=== PATIENT | female | born 1965 | race Caucasian/White ===

== ENCOUNTER 2021-07-09 11:57 | Outpatient (REF) | payer BC, SELFPAY ==
[2021-07-09 13:23] LABS: MANUAL DIFF FLAG NO
[2021-07-09 13:49] LABS: Basophils Absolute Auto 0.1 X10*3/uL (0.0-0.2); Basophils Percent Auto 1.3 % (0-2); Eosinophils Absolute Auto 0.5 X10*3/uL (0.0-0.4); Eosinophils Percent Auto 6.8 % (0-4); Hematocrit 39.1 % (37-47); Imm Gran Abs Auto 0.02 X10*3/uL (0.00-0.03); Imm Gran Pct Auto 0.3 % (0.0-0.4); Lymphocytes Absolute Auto 1.9 X10*3/uL (1.2-4.9); Lymphocytes Percent Auto 25.3 % (20-40); Mean Corpuscular HGB Conc 33.2 g/dl (31.0-35.0); Mean Corpuscular Hemoglobin 29.5 pg (27.0-33.0); Mean Corpuscular Volume 88.7 fL (80-98); Mean Platelet Volume 10.5 fL (9.4-12.3); Monocytes Absolute Auto 0.5 X10*3/uL (0.1-1.2); Monocytes Percent Auto 6.4 % (2-11); Neutrophils Absolute Auto 4.5 X10*3/uL (2.0-8.3); Neutrophils Percent Auto 59.9 % (45-73); Platelet Count 266 X10*3/uL (160-400); Red Blood Count 4.41 X10*6/uL (4.20-5.50); Red Cell Distribution Width 14.4 % (11.0-16.0); White Blood Count 7.5 X10*3/uL (4.8-10.8)
[2021-07-09 14:02] LABS: Anion Gap 12 (12-20); Blood Urea Nitrogen 9 mg/dL (9-16); Calcium 9.2 mg/dL (8.4-10.2); Carbon Dioxide 29 mmol/L (22-29); Chloride 105 mmol/L (96-108); Cholesterol 251 mg/dL; Estimated Glomerular Filt Rate > 60; Glucose Random 109 mg/dL (60-115); HDL Cholesterol 52 mg/dL; LDL Cholesterol Calculated 163 mg/dl; Potassium 3.9 mmol/L (3.3-5.1); Sodium 142 mmol/L (135-145); Triglycerides 182 mg/dL
[2021-07-09 14:14] LABS: TSH reflex Free T4 0.81 uIU/mL (0.32-4.0)
== END 2021-07-09 11:58 | disposition home or self-care (01) ==
LOC: HO.LAB 11:57
PROVIDERS: PCP Internal Medicine; Visit Provider Internal Medicine
DX: E66.09 Other obesity due to excess calories (principal); E78.9 Disorder of lipoprotein metabolism, unspecified; F33.9 Major depressive disorder, recurrent, unspecified; R06.02 Shortness of breath; R07.89 Other chest pain; R16.0 Hepatomegaly, not elsewhere classified
CPT/HCPCS: 36415; 80048; 80061; 84443; 85025

== ENCOUNTER 2021-07-11 09:06 | Outpatient (REF) | payer BC, SELFPAY ==
--- NOTE | ~2021-07-11 | CT_ITS ---
EXAMINATION: CT LIVER 3 PHASE CLINICAL INFORMATION: Hepatomegaly. COMPARISON: None. TECHNIQUE: Axial images through the abdomen with and without contrast. Arterial and portal-phase imaging through the liver following contrast. Patient received 85 mL Omnipaque 350 intravenous contrast. Total dose 887 mGy-cm. This CT examination was performed using dose optimization techniques as appropriate, variously including the following: *Automated exposure control *Adjustment of mA and/or kV according to patient size (this includes techniques or standardized protocols for targeted exams where dose is matched to indication/reason for exam; i.e. extremities or head) *Use of iterative reconstruction technique FINDINGS: There are small bilateral lower lobe pulmonary nodules. The largest pulmonary nodule measures 4 mm in the left lower lobe, axial image 6 series 7. The liver is slightly enlarged, right lobe measuring 18 cm in length. The liver is normal in contour. The liver is normal in attenuation. No focal liver lesion is seen. The gallbladder is normal. There is no intrahepatic or extrahepatic biliary duct dilatation. The spleen is normal. The pancreas is normal. The adrenal glands and kidneys are normal. Visualized bowel is unremarkable. No ascites or adenopathy is seen. Vascular structures are normal. There is a small umbilical hernia containing fat. There is mild degenerative disc disease at L4-L5. CT/CT liver 3 phase IMPRESSION: Slightly enlarged liver. The liver is normal in attenuation and contour. No focal liver lesion is seen. Multiple small bilateral pulmonary nodules, largest measuring 4 mm in the left lower lobe. Dedicated chest CT should be considered.
[2021-07-11] MEDS: iohexoL 350 MG/ML 100 ML INFUS..BTL IV (09:58)
== END 2021-07-11 09:07 | disposition home or self-care (01) ==
LOC: HO.CT 09:06
PROVIDERS: PCP Internal Medicine; Visit Provider Internal Medicine
DX: R16.0 Hepatomegaly, not elsewhere classified (principal)
CPT/HCPCS: 74170; Q9967

== ENCOUNTER 2021-07-25 14:50 | Outpatient (REF) | payer BC, SELFPAY ==
--- NOTE | ~2021-07-25 | CT_ITS ---
EXAMINATION: CT CHEST WITH CONTRAST CLINICAL INFORMATION: Follow-up pulmonary nodules COMPARISON: Lung windows from previous CT of the liver 07/11/2021 TECHNIQUE: Multidetector volumetric CT imaging of the chest was obtained after the administration of 50 mL of Omnipaque 350 intravenous contrast without immediate adverse reactions. Axial MIP volume rendering provided. Sagittal and coronal reformatted images were obtained. This CT examination was performed using dose optimization techniques as appropriate, variously including the following: *Automated exposure control *Adjustment of mA and/or kV according to patient size (this includes techniques or standardized protocols for targeted exams where dose is matched to indication/reason for exam; i.e. extremities or head) *Use of iterative reconstruction technique DLP: 171 mGy-cm FINDINGS: LUNGS: There is a 3 mm peripheral calcified left lower lobe nodule axial image 148 series 10 that is stable. The multiple small noncalcified pulmonary nodules seen at the lung bases on 07/11/2021 exam appear decreased in size or are no longer seen. There is a 2 mm peripheral or subpleural left upper lobe nodule adjacent to the fissure axial image 49 series 2 There is a 2 mm peripheral or subpleural right upper lobe nodule adjacent to the minor fissure axial image 80 series 10. There is a 2 mm peripheral or subpleural right lower lobe nodule adjacent to the major fissure axial image 90. These probably represent subpleural lymph nodes. The lungs are otherwise clear. MEDIASTINUM: The mediastinum is normal. PLEURA: There is no pleural effusion. No pleural mass or thickening. AXILLA: There are bilateral breast implants. There are no enlarged axillary lymph nodes. There is no chest wall mass. UPPER ABDOMEN: Unremarkable OSSEOUS STRUCTURES: There are mild degenerative changes of the spine. CT/CT chest w con IMPRESSION: Stable 3 mm calcified left lower lobe nodule probably representing a calcified granuloma. The other previously identified noncalcified lower lobe nodules on 07/11/2021 are no longer seen. There are several small 2 to 3 mm peripheral or subpleural pulmonary nodules probably representing subpleural lymph nodes.
[2021-07-25] MEDS: iohexoL 350 MG/ML 100 ML INFUS..BTL 65 ML IV (16:09)
== END 2021-07-25 14:51 | disposition home or self-care (01) ==
LOC: HO.CT 14:50
PROVIDERS: Visit Provider Internal Medicine
DX: R91.8 Other nonspecific abnormal finding of lung field (principal)
CPT/HCPCS: 71260; Q9967

== ENCOUNTER 2021-08-02 15:04 | Outpatient (REF) | payer BC, SELFPAY ==
--- NOTE | ~2021-08-02 | XR_ITS ---
EXAMINATION: XR FOOT, BILATERAL CLINICAL INFORMATION: Pain. COMPARISON: None TECHNIQUE: 3 views each foot. FINDINGS: LEFT FOOT: There is no visible fracture, dislocation or subluxation. There is a small calcaneal heel and retrocalcaneal enthesophytes. There is dorsal intertarsal spurring as well. No visible acute fracture, dislocation or lytic process seen. RIGHT FOOT: There is no visible acute fracture, dislocation or subluxation seen. The ankle mortise and the subtalar joints are normal. Small calcaneal and retrocalcaneal enthesophytes. There is mild dorsal 1st MTP joint periarticular spurring with loss of joint space. XR/XR foot RT min 3V IMPRESSION: Bilateral calcaneal heel and retrocalcaneal enthesophytes. Dorsal intertarsal spurring left foot and 1st MTP joint narrowing with spurring right foot. No visible acute fracture or dislocation.
--- NOTE | ~2021-08-02 | XR_ITS ---
EXAMINATION: XR FOOT, BILATERAL CLINICAL INFORMATION: Pain. COMPARISON: None TECHNIQUE: 3 views each foot. FINDINGS: LEFT FOOT: There is no visible fracture, dislocation or subluxation. There is a small calcaneal heel and retrocalcaneal enthesophytes. There is dorsal intertarsal spurring as well. No visible acute fracture, dislocation or lytic process seen. RIGHT FOOT: There is no visible acute fracture, dislocation or subluxation seen. The ankle mortise and the subtalar joints are normal. Small calcaneal and retrocalcaneal enthesophytes. There is mild dorsal 1st MTP joint periarticular spurring with loss of joint space. XR/XR foot LT min 3V IMPRESSION: Bilateral calcaneal heel and retrocalcaneal enthesophytes. Dorsal intertarsal spurring left foot and 1st MTP joint narrowing with spurring right foot. No visible acute fracture or dislocation.
== END 2021-08-02 15:05 | disposition home or self-care (01) ==
LOC: HO.HMGCX 15:04
PROVIDERS: PCP Internal Medicine; Visit Provider Internal Medicine
DX: M79.671 Pain in right foot (principal); M79.672 Pain in left foot
CPT/HCPCS: 73630

== ENCOUNTER → 2021-09-23 15:31 | Outpatient (BNVA) | payer BC, SELFPAY | PROVIDERS: PCP Internal Medicine; Visit Provider Internal Medicine Pulmonary Disease ==

== ENCOUNTER 2021-12-02 12:06 | Outpatient (REF) | payer OTHER, SELFPAY ==
--- NOTE | ~2021-12-02 | XR_ITS ---
EXAMINATION: XR ANKLE, RIGHT CLINICAL INFORMATION: Sprain COMPARISON: Right foot x-rays 08/12/2021 TECHNIQUE: AP, lateral, and mortise views of the right ankle. FINDINGS: Visualized portion of the distal tibia and fibula demonstrate no fracture. Ankle mortise is maintained aerated. Mild asymmetric soft tissue swelling overlying the lateral ankle. No gross ankle joint effusion. Small posterior and plantar calcaneal enthesophytes. XR/XR ankle RT min 3V IMPRESSION: Soft tissue swelling of the lateral ankle without fracture.
== END 2021-12-02 12:07 | disposition home or self-care (01) ==
LOC: HO.HMGCX 12:06
PROVIDERS: Visit Provider Internal Medicine
DX: S93.401A Sprain of unspecified ligament of right ankle, initial encounter (principal)
CPT/HCPCS: 73610

== ENCOUNTER 2022-07-03 15:13 | Outpatient (REF) | payer OTHER, SELFPAY | END 2022-07-03 15:14 | disposition home or self-care (01) | LOC: HO.LAB 15:13 | DX: R30.0 Dysuria (principal) | CPT/HCPCS: 87086; 87088; 87186 ==

== ENCOUNTER 2025-04-24 11:02 | Outpatient (REF) | payer OTHER, SELFPAY ==
[2025-04-24 11:32] LABS: MANUAL DIFF FLAG NO
[2025-04-24 11:40] LABS: Basophils Absolute Auto 0.1 X10*3/uL (0.0-0.2); Basophils Percent Auto 1.3 % (0-2); Eosinophils Absolute Auto 0.3 X10*3/uL (0.0-0.4); Eosinophils Percent Auto 5.1 % (0-4); Hematocrit 40.8 % (37.0-47.0); Hemoglobin 13.3 g/dl (12.0-16.0); Imm Gran Abs Auto 0.04 X10*3/uL (0.00-0.03); Imm Gran Pct Auto 0.7 % (0.0-0.4); Lymphocytes Percent Auto 33.3 % (20-40); Mean Corpuscular HGB Conc 32.6 g/dl (31.0-35.0); Mean Corpuscular Hemoglobin 29.2 pg (27.0-33.0); Mean Corpuscular Volume 89.7 fL (80.0-98.0); Mean Platelet Volume 9.9 fL (9.4-12.3); Monocytes Absolute Auto 0.4 X10*3/uL (0.1-1.2); Monocytes Percent Auto 5.9 % (2-11); Neutrophils Absolute Auto 3.3 x10*3/uL (2.0-8.3); Neutrophils Percent Auto 53.7 % (45-73); Platelet Count 198 X10*3/uL (160-400); Red Blood Count 4.55 X10*6/uL (4.20-5.50); Red Cell Distribution Width 13.2 % (11.0-16.0); White Blood Count 6.1 X10*3/uL (4.8-10.8)
--- OUTSIDE RECORDS SUMMARY | 2025-04-24 11:57 | XMS_ITS | Patient Health Record ---
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 Metabolic Panel ([id number] Reviewed date:09/16/2024 01:44:42 PM Interpretation: Performing Lab:[facility], [address] [place] [address], Phone - [phone], Director - Romario Notes/Report: Glucose 104 70-99 mg/dL BUN 14 6-24 mg/dL Creatinine 0.99 0.57-1.00 mg/dL eGFR 67 >59 mL/min/1.73 BUN/Creatinine Ratio 14 9-23 Sodium 142 134-144 mmol/L Potassium 4.6 3.5-5.2 mmol/L Chloride 102 96-106 mmol/L Carbon Dioxide, Total 26 20-29 mmol/L Calcium 9.3 8.7-10.2 mg/dL Protein, Total 6.7 6.0-8.5 g/dL Albumin 4.4 3.8-4.9 g/dL Globulin, Total 2.3 1.5-4.5 g/dL Bilirubin, Total 0.6 0.0-1.2 mg/dL Alkaline Phosphatase 98 44-121 IU/L AST (SGOT) 16 0-40 IU/L ALT (SGPT) 22 0-32 IU/L Lipid Panel-[id number] Reviewed date:09/16/2024 01:45:16 PM Interpretation: Performing Lab:[facility], [address], [place], Phone - [phone], Director - Romario Notes/Report: Cholesterol, Total 297 100-199 mg/dL Triglycerides 105 0-149 mg/dL HDL Cholesterol 74 >39 mg/dL VLDL Cholesterol Waylon 18 5-40 mg/dL LDL Chol Calc ([facility]) 205 0-99 mg/dL LDL Calc Comment: Consider evaluating for Familial Hypercholesterolemia(FH), if clinically indicated. Reason For Referral Reason Evaluation and manag ement Diagnosis 1 Other visual disturb ances (H53.8) Referral Organization [facility] Referring Provider First Name CHARANJIT Referring Provider Last Name CLAUDIA Referring Provider Speciality Internal edicine Referred Provider Specialty Ophthalmolog y General Notes Referral sent to [facility] - Dept will call patient for scheduling., Laura Cisneros 06/01/2024 08:11:49 AM > Referral Priority Routine Reason Please evaluate and treat; +Cologuard Diagnosis 1 Encounter for screen ing for malignant neoplasm of colon (Z12.11) Referral Organization [facility] Referring Provider First Name CHARANJIT Referring Provider Last Name CLAUDIA Referring Provider Speciality Internal edicine Referred Provider Specialty Gastroentero logy General Notes Referral (paper) fax ed to [facility]. Please call patient to schedule.Fritz Kayla 06/28/2024 02:48:43 PM > Referral Priority Routine Reason Full skin evaluation -Demos Diagnosis 1 Encounter for screen ing for malignant neoplasm of skin (Z12.83) Referral Organization [facility] Referring Provider First Name Yecenia Referring Provider Last Name Luma Referred Provider Specialty Dermatology General Notes Referral sent to [facility] os Dermatology. 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 Referral Priority Routine Reason Evaluation and manag ement Diagnosis 1 Generalized anxiety disorder (F41.1) Referral Organization [facility] Referring Provider First Name Yecenia Referring Provider Last Name Luma Referred Provider Specialty Psychiatry General Notes Referral sent to Dr. Da Silva - Office will call patient for scheduling.Blayne Latraya 08/23/2024 04:05:07 PM > Referral Priority Routine Reason Evaluation and manag ement Diagnosis 1 Fatigue, unspecified type (R53.83) Referral Organization [facility] Referring Provider First Name Yecenia Referring Provider Last Name Luma Referred Provider Specialty Sleep Medici ne General Notes Ref[facility] sent to [facility] ([address] [place] [address] ) - Office will call patient for scheduling., Laura Cisneros 08/23/2024 04:20:11 PM > Referral Priority Routine Reason Evaluation and manag ement - EMG Diagnosis 1 Bilateral carpal victor manuel jennifer syndrome (G56.03) Referral Organization [facility] Referring Provider First Name Yecenia Referring Provider Last Name Luma Referred Provider Specialty Neurology General Notes Referral sent to [facility] ([address] [address] [phone]) - Office will call patient for scheduling., Laura Cisneros 08/23/2024 04:23:13 PM > Referral Priority Routine Medications Medication SIG (Take, Route, Frequency, Duration) Notes Start Date End Date Status Claritin 10 MG 1 tablet Orally twic e a day; Duration: 7 days 10/12/2023 Not-Taking Flonase Allergy Relief 50 MCG/ACT 1 spray in each nostril Nasally Once a day; Duration: 30 days 10/12/2023 Not-Maribel g Buprenorphine HCl-Naloxone HCl 4-1 MG DISSOLVE 1 FILM UNDER THE TONGUE AND ALLOW TO DISSOLVE RF WHEN DUE SUBLINGUAL ONCE A DAY 28 DAYS RADHA [id number] Sublingual Once a day; Duration: 28 days 04/19/2025 Active Benzonatate 100 MG 1 capsule as needed Orally Three times a day; Duration: 7 days 10/12/2023 Not-Taking Gabapentin 300 MG TAKE 2 CAPSULES BY MOUTH EVERY DAY AT BEDTIME; Duration: 30 Active Sertraline HCl 100 MG TAKE 2 TABLETS BY MOUTH DAILY; Duration: 90 days Active buPROPion HCl ER (XL) 150 MG TAKE 1 TABLET BY MOUTH EVERY DAY IN THE MORNING FOR 30 DAYS; Duration: 90 Not-Taking traZODone HCl 50 MG 1 tablet at bedtime Orally; Duration: 30 days Active Hydrocortisone 0.5 % 1 application Externally Twice a day; Duration: 14 days 09/30/2024 Active amLODIPine Besylate 2.5 MG TAKE 1 TABLET BY MOUTH EVERY DAY FOR 30 DAYS; Duration: 90 Active Atorvastatin Calcium 20 MG TAKE 1 TABLET BY MOUTH EVERY DAY FOR 30 DAYS; Duration: 90 Active Immunizations Vaccine Route Administration Date Status Comme nts COVID Moderna Unknown 03/18/2021 Administered COVID Moderna Unknown 04/17/2021 Administered Influenza (split), seasonal, intradermal, preservative free Unknown 09/30/2017 Administered Tdap Unknown 09/30/2017 Administered Social History Tobacco Use: Social History Observation Description Date Details (start date - stop date) Never Smoker NA - NA Tobacco Use/Smoking Question Answer Notes Are you a nonsmoker Alcohol Screen (Audit-C) Question Answer Notes Did you have a drink containing alcohol in the p ast year? No Points 0 Interpretation Negative Problems Problem Type SNOMED Code ICD Code Onset Dates Problem Status W/U Status Risk Notes Problem Obesity due to excess calories (249477646) Other obesity due to excess calories (E66.09) Active confirmed Problem Mixed hyperlipidemia (470072921) Mixed hyperlipidemia (E78.2) Active confirmed Problem Opioid dependence (84011109) Opioid dependence, uncomplicated (F11.20) Active confirmed Problem Nondependent cannabis abuse (303479076) Cannabis use, unspecified, uncomplicated (F12.90) Active confirmed Problem Generalized anxiety disorder (65966182) Generalized anxiety disorder (F41.1) Active confirmed Problem Restless legs syndrome (00402595) Restless legs syndrome (G25.81) Active confirmed Problem Insomnia (946943047) Insomnia, unspecified (G47.00) Active confirmed Problem Chronic kidney disease stage 2 (606450702) Chronic kidney disease, stage 2 (mild) (N18.2) Active confirmed Problem Drug addiction counseling (98492710) Drug abuse counseling and surveillance of drug abuser (Z71.51) Active confirmed Problem Essential hypertension (95157227) Essential (primary) hypertension (I10) Active confirmed Problem Bilateral carpal tunnel syndrome (1907549648411704 1) Bilateral carpal tunnel syndrome (G56.03) Active confirmed Vital Signs Heart Rate 81 /min 04/19/2025 Temperature 97.0 degrees Fahrenheit 04/19/2025 Blood pressure diastolic 72 mm Hg 04/19/2025 Oximetry 97 % 04/19/2025 Height 67 in 04/19/2025 Blood pressure systolic 120 mm Hg 04/19/2025 Weight 212.0 lbs 04/19/2025 BMI 33.2 kg/m2 04/19/2025 Encounters Encounter Location Date Provider Diagnosis [facility] [address] [place] [address] 05/23/2024 [facility] [address] [place] [address] 05/27/2024 [facility] Encounter for screen ing for malignant neoplasm of colon Z12.11 [facility] [address] [place] [address] 06/20/2024 [facility] [address] [place] [address] 06/28/2024 [facility] [address] [place] [address] 07/18/2024 [facility] [address] [place] [address] 08/05/2024 [facility] [address] [place] [address] 08/23/2024 [facility] [address] [place] [address] 09/13/2024 [facility] [address] [place] [address] 09/16/[address] [place] [address] 09/16/2024 Ghadeer Mazloum Hyperlipidemia, mixe d E78.2 and Impaired fasting blood sugar R73.[address] [place] [address] 09/21/[address] [place] [address] 09/21/[address] [place] [address] 12/21/2024 [facility] Insomnia, unspecifie d G47.[address] [place] [address] 03/23/2025 Ghadeer Mazloum Opioid dependence, uncomplicated F11.[address] [place] [address] 04/11/2025 Ghadeer Mazloum [address] [place] [address] 08/15/2024 Ghadeer Mazloum Essential (primary) hypertension I10 ; Annual physical exam Z00.00 ; Generalized anxiety disorder F41.1 ; Insomnia, unspecified G47.00 ; Other obesity due to excess calories E66.09 ; Dietary counseling and surveillance Z71.3 ; Opioid dependence, uncomplicated F11.20 ; Drug abuse counseling and surveillance of drug abuser Z71.51 ; Cannabis use, unspecified, uncomplicated F12.90 ; Restless legs syndrome G25.81 ; Fatigue, unspecified type R53.83 ; Bilateral carpal tunnel syndrome G56.03 and Encounter for screening mammogram for malignant neoplasm of breast Z12.[address] [place] [address] 02/15/2025 Ghadeer Mazloum Mixed hyperlipidemia E78.2 ; Opioid dependence, uncomplicated F11.20 ; Generalized anxiety disorder F41.1 and Cannabis use, unspecified, uncomplicated F12.[address] [place] [address] 08/12/2024 DONOHUE GUL Essential (primary) hypertension I10 ; Other obesity due to excess calories E66.09 ; Dietary counseling and surveillance Z71.3 ; Other chest pain R07.89 ; Opioid dependence, uncomplicated F11.20 and Drug abuse counseling and surveillance of drug abuser Z71.[address] [place] [address] 05/10/[address] [place] [address] 05/27/2024 DONOHUE GLENYS Opioid dependence, uncomplicated F11.20 ; Drug abuse counseling and surveillance of drug abuser Z71.51 and Generalized anxiety disorder F41.[address] [place] [address] 07/08/2024 Ghadeer Mazloum Opioid dependence, uncomplicated F11.20 ; Cardiac arrhythmia, unspecified I49.9 ; Drug abuse counseling and surveillance of drug abuser Z71.51 and Generalized anxiety disorder F41.[address] [place] [address] 03/17/2025 Ghadeer Mazloum Mixed hyperlipidemia E78.2 ; Opioid dependence, uncomplicated F11.20 ; Generalized anxiety disorder F41.1 and Cannabis use, unspecified, uncomplicated F12.[address] [place] [address] 04/19/2025 Ghadeer Mazloum Mixed hyperlipidemia E78.2 ; Opioid dependence, uncomplicated F11.20 ; Generalized anxiety disorder F41.1 ; Essential (primary) hypertension I10 ; Cannabis use, unspecified, uncomplicated F12.90 and Atypical chest pain R07.[address] [place] [address] 09/15/[address] [place] [address] 09/30/2024 DONOHUE GUL Generalized anxiety disorder F41.1 ; Mixed hyperlipidemia E78.2 ; Other obesity due to excess calories E66.09 ; Opioid dependence, uncomplicated F11.20 ; Cannabis use, unspecified, uncomplicated F12.90 ; Impaired fasting blood sugar R73.01 ; Dietary counseling and surveillance Z71.3 ; Dermatitis, unspecified L30.9 and Chronic kidney disease, stage 2 (mild) N18.[address] [address] 10/28/2024 Ghadeer Mazloum Mixed hyperlipidemia E78.2 ; Opioid dependence, uncomplicated F11.20 ; Generalized anxiety disorder F41.1 ; Other obesity due to excess calories E66.09 ; Cannabis use, unspecified, uncomplicated F12.90 ; Dietary counseling and surveillance Z71.3 and Impaired fasting blood sugar R73.[address] [address] 11/25/2024 Ghadeer Mazloum Mixed hyperlipidemia E78.2 ; Opioid dependence, uncomplicated F11.20 ; Generalized anxiety disorder F41.1 ; Cannabis use, unspecified, uncomplicated F12.90 ; Other obesity due to excess calories E66.09 and Dietary counseling and surveillance Z71.[address] [address] 12/23/2024 Ghadeer Mazloum Mixed hyperlipidemia E78.2 ; Opioid dependence, uncomplicated F11.20 ; Generalized anxiety disorder F41.1 ; Cannabis use, unspecified, uncomplicated F12.90 and Fatigue, unspecified type R53.[address] [address] 01/20/2025 Aroosa Alam Mixed hyperlipidemia E78.2 ; Opioid dependence, uncomplicated F11.20 ; Generalized anxiety disorder F41.1 ; Cannabis use, unspecified, uncomplicated F12.90 and Fatigue, unspecified type R53.83 Assessments Encounter Date Diagnosis (ICD Code) Assessment Notes Treatment Notes Treatment Clinical Notes Section Notes 05/27/2024 Drug abuse counseling and surveillance of drug abuser (ICD-10 - Z71.51) Patient is here today called today for follow-up on opioid use disorder. Plan is as follows Patient requests for ongoing treatment with Suboxone for opioid dependence and med compliance requirement today satisfying the federation of state Board recommendation and guidelines for judicious, supervised Suboxone dispensing. Patient agrees to a personal interview for renewal or further treatment As planned at next scheduled visit or sooner if conditions change. Medication contract agreement and compliance reinforced. All risks and benefits associated with Suboxone utilization, safe use and storage was discussed in detail and patient voluntarily accepts all obligations. Toxicology and prescription monitoring program is followed. As such controlled substance use required judicious monitoring to excess patient's compliance with the mutually agreed upon controlled substance use agreement which has been signed by the patient at the initiation of the controlled substance prescribing. Therefore following state, Federal, [facility] guidelines for controlled substance testing policies. Patient has been assessed based on psychometric risks to, prescription monitoring program, toxicology tests results monitoring and compliance and this patient therefore will be tested on site guidelines. Urine toxicology reviewed and is positive for buprenorphine and marijuana. Liver function tests were reviewed and were within normal limits ORT for narcotic abuse done and he is moderate risk Wrappers will be counted on physical visit Prescription monitoring program reviewed Controlled substance contract signed No signs of diversion or aberrant behavior Continue current regimen Counseling. Patient goes for counseling Generalized anxiety disorder. Mood is stable on Sertraline. Blurred vision. Referred to ophthalmology for eye screening Scribe services used to formulate this note under HIPAA compliance and under [place] law mandated for scribe services. Patient aware of service. Verbal consent and written consent taken from the patient. Patient understands and verbalizes understanding of the scribes services and all questions answered regarding scribes services. Patient agrees to use of scribes services. 05/27/2024 Encounter for screening for malignant neoplasm of colon (ICD-10 - Z12.11) 07/08/2024 Opioid dependence, uncomplicated (ICD-10 - F11.20) Patient is here today called today for follow-up on opioid use disorder. Plan is as follows Patient requests for ongoing treatment with Suboxone for opioid dependence and med compliance requirement today satisfying the federation of state Board recommendation and guidelines for judicious, supervised Suboxone dispensing. Patient agrees to a personal interview for renewal or further treatment As planned at next scheduled visit or sooner if conditions change. Medication contract agreement and compliance reinforced. All risks and benefits associated with Suboxone utilization, safe use and storage was discussed in detail and patient voluntarily accepts all obligations. Toxicology and prescription monitoring program is followed. As such controlled substance use required judicious monitoring to excess patient's compliance with the mutually agreed upon controlled substance use agreement which has been signed by the patient at the initiation of the controlled substance prescribing. Therefore following state, Federal, CMS guidelines for controlled substance testing policies. Patient has been assessed based on psychometric risks to, prescription monitoring program, toxicology tests results monitoring and compliance and this patient therefore will be tested on site guidelines. Urine toxicology reviewed and is positive for buprenorphine and marijuana. Liver function tests were reviewed and were within normal limits ORT for narcotic abuse done and he is moderate risk Wrappers will be counted on physical visit Prescription monitoring program reviewed Controlled substance contract signed No signs of diversion or aberrant behavior Continue current regimen Counseling. Patient goes for counseling Generalized anxiety disorder. Mood is stable on Sertraline. Irregular rhythm: - EKG is done in the office today, HR of 57bpm, Sinus rhythm.PAC and PVC are noted. No ST elevation or depression is noted I have rendered the services for this patient under direct supervision of Dr. Taylor, who did not see the patient but was available upon request 05/27/2024 Opioid dependence, uncomplicated (ICD-10 - F11.20) Patient is here today called today for follow-up on opioid use disorder. Plan is as follows Patient requests for ongoing treatment with Suboxone for opioid dependence and med compliance requirement today satisfying the federation of state Board recommendation and guidelines for judicious, supervised Suboxone dispensing. Patient agrees to a personal interview for renewal or further treatment As planned at next scheduled visit or sooner if conditions change. Medication contract agreement and compliance reinforced. All risks and benefits associated with Suboxone utilization, safe use and storage was discussed in detail and patient voluntarily accepts all obligations. Toxicology and prescription monitoring program is followed. As such controlled substance use required judicious monitoring to excess patient's compliance with the mutually agreed upon controlled substance use agreement which has been signed by the patient at the initiation of the controlled substance prescribing. Therefore following state, Federal, CMS guidelines for controlled substance testing policies. Patient has been assessed based on psychometric risks to, prescription monitoring program, toxicology tests results monitoring and compliance and this patient therefore will be tested on site guidelines. Urine toxicology reviewed and is positive for buprenorphine and marijuana. Liver function tests were reviewed and were within normal limits ORT for narcotic abuse done and he is moderate risk Wrappers will be counted on physical visit Prescription monitoring program reviewed Controlled substance contract signed No signs of diversion or aberrant behavior Continue current regimen Counseling. Patient goes for counseling Generalized anxiety disorder. Mood is stable on Sertraline. Blurred vision. Referred to ophthalmology for eye screening Scribe services used to formulate this note under HIPAA compliance and under [place] law mandated for scribe services. Patient aware of service. Verbal consent and written consent taken from the patient. Patient understands and verbalizes understanding of the scribes services and all questions answered regarding scribes services. Patient agrees to use of scribes services. 07/08/2024 Cardiac arrhythmia, unspecified (ICD-10 - I49.9) Patient is here today called today for follow-up on opioid use disorder. Plan is as follows Patient requests for ongoing treatment with Suboxone for opioid dependence and med compliance requirement today satisfying the federation of state Board recommendation and guidelines for judicious, supervised Suboxone dispensing. Patient agrees to a personal interview for renewal or further treatment As planned at next scheduled visit or sooner if conditions change. Medication contract agreement and compliance reinforced. All risks and benefits associated with Suboxone utilization, safe use and storage was discussed in detail and patient voluntarily accepts all obligations. Toxicology and prescription monitoring program is followed. As such controlled substance use required judicious monitoring to excess patient's compliance with the mutually agreed upon controlled substance use agreement which has been signed by the patient at the initiation of the controlled substance prescribing. Therefore following state, Federal, CMS guidelines for controlled substance testing policies. Patient has been assessed based on psychometric risks to, prescription monitoring program, toxicology tests results monitoring and compliance and this patient therefore will be tested on site guidelines. Urine toxicology reviewed and is positive for buprenorphine and marijuana. Liver function tests were reviewed and were within normal limits ORT for narcotic abuse done and he is moderate risk Wrappers will be counted on physical visit Prescription monitoring program reviewed Controlled substance contract signed No signs of diversion or aberrant behavior Continue current regimen Counseling. Patient goes for counseling Generalized anxiety disorder. Mood is stable on Sertraline. Irregular rhythm: - EKG is done in the office today, HR of 57bpm, Sinus rhythm.PAC and PVC are noted. No ST elevation or depression is noted I have rendered the services for this patient under direct supervision of Dr. Taylor, who did not see the patient but was available upon request 08/12/2024 Other obesity due to excess calories (ICD-10 - E66.09) Mrs. Hinkle is 58 years old lady with a history of generalized anxiety disorder here for follow up s/p ER discharge. Plan is as follows: Hypertension. Her blood pressure is running high in the office today. Cut back on sodium intake. Advised appropriate hydration, cardio exercises and weight loss. Start amlodipine 2.5 MG once a day. Generalized anxiety disorder. Mood is stable on Sertraline once a day. Class 1 obesity. Advised dietary restrictions and regimental exercise. Goal is to lose 5-6 lbs a month. Screening blood work before next appointment. General health concerns discussed with patient. Scribe services used to formulate this note under HIPAA compliance and under [place] law mandated for scribe services. Patient aware of service. Verbal consent and written consent taken from the patient. Patient understands and verbalizes understanding of the scribes services and all questions answered regarding scribes services. Patient agrees to use of scribes services. 08/12/2024 Essential (primary) hypertension (ICD-10 - I10) Mrs. Hinkle is 58 years old lady with a history of generalized anxiety disorder here for follow up s/p ER discharge. Plan is as follows: Hypertension. Her blood pressure is running high in the office today. Cut back on sodium intake. Advised appropriate hydration, cardio exercises and weight loss. Start amlodipine 2.5 MG once a day. Generalized anxiety disorder. Mood is stable on Sertraline once a day. Class 1 obesity. Advised dietary restrictions and regimental exercise. Goal is to lose 5-6 lbs a month. Screening blood work before next appointment. General health concerns discussed with patient. Scribe services used to formulate this note under HIPAA compliance and under [place] law mandated for scribe services. Patient aware of service. Verbal consent and written consent taken from the patient. Patient understands and verbalizes understanding of the scribes services and all questions answered regarding scribes services. Patient agrees to use of scribes services. 08/15/2024 Essential (primary) hypertension (ICD-10 - I10) Mrs. Hinkle is 58 years old lady with a history of generalized anxiety disorder here for follow up s/p ER discharge. Plan is as follows: Hypertension. - Her blood pressure is well controlled. Continue on the same regimen. Cut back on sodium intake. Advised appropriate hydration, cardio exercises and weight loss. - EKG was done 2 weeks ago. She has echo appointment coming up in October. Generalized anxiety disorder. Insomnia: - PHQ 9 of 14. She is on sertraline 100 mg twice a day. She had side effects from adjunct medications. Given that she has insomnia and depression, I started patient on low dose trazodone. She is also going to be on gabapentin for restless leg syndrome which will also help with sleep and depression. She has an established therapy. Referred patient to psychiatry. Will follow in 4 weeks Class 1 obesity. -Advised dietary restrictions and regimental exercise. Goal is to lose 5-6 lbs a month. Opioid dependence: - Stable on Suboxone. Utox is done in the office and it is positive for Suboxone. Continue on the same regimen. - Positive for fentanyl we will send it for confirmation. Cannabis use - Advised on smoking cessation given its side effects. Patient states that she is working on cutting down on smoking marijuana. Restless leg syndrome: - Started patient on gabapentin. Side effects have been discussed. Patient agrees. Fatigue Snoring - I will rule out underlying causes including thyroid, vitamin D, CBC, folate and B12. I also referred patient to sleep medicine. Carpal tunnel syndrome bilateral - Advised on use of splint, NSAIDs. Referred patient to nerve conduction study for further management. Screening for breast cancer - Ordered mammogram Screening for colon cancer - She has a colonoscopy coming up. Referred patient to [facility]ENCE [facility] for Pap smear, pelvic examination, breast exam. Otherwise, she is up-to-date on vaccinations. Screening blood work before next appointment. General health concerns discussed with patient. I have rendered the services for this patient under direct supervision of Dr. Taylor, who did not see the patient but was available upon request I was present and available in the office during the visit 08/15/2024 Annual physical exam (ICD-10 - Z00.00) Mrs. Hinkle is 58 years old lady with a history of generalized anxiety disorder here for follow up s/p ER discharge. Plan is as follows: Hypertension. - Her blood pressure is well controlled. Continue on the same regimen. Cut back on sodium intake. Advised appropriate hydration, cardio exercises and weight loss. - EKG was done 2 weeks ago. She has echo appointment coming up in October. Generalized anxiety disorder. Insomnia: - PHQ 9 of 14. She is on sertraline 100 mg twice a day. She had side effects from adjunct medications. Given that she has insomnia and depression, I started patient on low dose trazodone. She is also going to be on gabapentin for restless leg syndrome which will also help with sleep and depression. She has an established therapy. Referred patient to psychiatry. Will follow in 4 weeks Class 1 obesity. -Advised dietary restrictions and regimental exercise. Goal is to lose 5-6 lbs a month. Opioid dependence: - Stable on Suboxone. Utox is done in the office and it is positive for Suboxone. Continue on the same regimen. - Positive for fentanyl we will send it for confirmation. Cannabis use - Advised on smoking cessation given its side effects. Patient states that she is working on cutting down on smoking marijuana. Restless leg syndrome: - Started patient on gabapentin. Side effects have been discussed. Patient agrees. Fatigue Snoring - I will rule out underlying causes including thyroid, vitamin D, CBC, folate and B12. I also referred patient to sleep medicine. Carpal tunnel syndrome bilateral - Advised on use of splint, NSAIDs. Referred patient to nerve conduction study for further management. Screening for breast cancer - Ordered mammogram Screening for colon cancer - She has a colonoscopy coming up. Referred patient to [facility]ON[facility] SCIENCE PROF[facility] for Pap smear, pelvic examination, breast exam. Otherwise, she is up-to-date on vaccinations. Screening blood work before next appointment. General health concerns discussed with patient. I have rendered the services for this patient under direct supervision of Dr. Taylor, who did not see the patient but was available upon request I was present and available in the office during the visit 09/16/2024 Impaired fasting blood sugar (ICD-10 - R73.01) 09/16/2024 Hyperlipidemia, mixed (ICD-10 - E78.2) 09/30/2024 Mixed hyperlipidemia (ICD-10 - E78.2) Krysta is 58 years old pleasant lady with generalized anxiety disorder, mixed hyperlipidemia, carpal tunnel syndrome, hypertension, cannabis use and history of opioid use in the past currently on Suboxone is here for follow-up. Plan is as follows Mixed hyperlipidemia. Started on atorvastatin 20 mg and repeat lipid panel in 4-6 weeks. Advised to take the medication in the evening. CKD stage II. Discussed with the patient to stay appropriately hydrated and take Tylenol for pain. This can be multifactorial but no intervention needed. Generalized anxiety disorder. She is stable and she follows up with Miss Parham for counseling. Impaired fasting glucose. Dietary restrictions and check A1c in future. Obesity. Encouraged to lose weight. Dietary modifications and lifestyle changes encouraged. Average weight loss should be 6 pounds a month. Opioid dependence. -Urine toxicology reviewed with appropriately positive and negative. -Liver function tests within normal limits -Wrappers counted, four Suboxone films left -No signs of divergent or apparent behavior -Prescription monitoring program reviewed -He has controlled substance contract -Continue current regimen -Counseling done 09/30/2024 Generalized anxiety disorder (ICD-10 - F41.1) Krysta is 58 years old pleasant lady with generalized anxiety disorder, mixed hyperlipidemia, carpal tunnel syndrome, hypertension, cannabis use and history of opioid use in the past currently on Suboxone is here for follow-up. Plan is as follows Mixed hyperlipidemia. Started on atorvastatin 20 mg and repeat lipid panel in 4-6 weeks. Advised to take the medication in the evening. CKD stage II. Discussed with the patient to stay appropriately hydrated and take Tylenol for pain. This can be multifactorial but no intervention needed. Generalized anxiety disorder. She is stable and she follows up with Miss Parham for counseling. Impaired fasting glucose. Dietary restrictions and check A1c in future. Obesity. Encouraged to lose weight. Dietary modifications and lifestyle changes encouraged. Average weight loss should be 6 pounds a month. Opioid dependence. -Urine toxicology reviewed with appropriately positive and negative. -Liver function tests within normal limits -Wrappers counted, four Suboxone films left -No signs of divergent or apparent behavior -Prescription monitoring program reviewed -He has controlled substance contract -Continue current regimen -Counseling done 11/25/2024 Mixed hyperlipidemia (ICD-10 - E78.2) Krysta is 59 years old pleasant lady with generalized anxiety disorder, mixed hyperlipidemia, carpal tunnel syndrome, hypertension, cannabis use and history of opioid use in the past currently on Suboxone is here for follow-up. Plan is as follows Opioid dependence. -Urine toxicology reviewed with appropriately positive for Buprenorphine. -Liver function tests within normal limits -Wrappers counted, four Suboxone films left -No signs of divergent or apparent behavior -Prescription monitoring program reviewed -He has controlled substance contract -Continue current regimen -Counseling done Mixed hyperlipidemia. - Continue on atorvastatin 20 mg and repeat lipid panel in 4-6 weeks. Advised to take the medication in the evening. ARMIN: - Stable at this point. She recently lost her mother and best friend. She is currently in therapy. Obesity. - She is losing steady weight. She will scheduling an appt for weight consultation. Encouraged to lose weight. Dietary modifications and lifestyle changes encouraged. Average weight loss should be 4-6lbs monthly. 11/25/2024 Opioid dependence, uncomplicated (ICD-10 - F11.20) Krysta is 59 years old pleasant lady with generalized anxiety disorder, mixed hyperlipidemia, carpal tunnel syndrome, hypertension, cannabis use and history of opioid use in the past currently on Suboxone is here for follow-up. Plan is as follows Opioid dependence. -Urine toxicology reviewed with appropriately positive for Buprenorphine. -Liver function tests within normal limits -Wrappers counted, four Suboxone films left -No signs of divergent or apparent behavior -Prescription monitoring program reviewed -He has controlled substance contract -Continue current regimen -Counseling done Mixed hyperlipidemia. - Continue on atorvastatin 20 mg and repeat lipid panel in 4-6 weeks. Advised to take the medication in the evening. ARMIN: - Stable at this point. She recently lost her mother and best friend. She is currently in therapy. Obesity. - She is losing steady weight. She will scheduling an appt for weight consultation. Encouraged to lose weight. Dietary modifications and lifestyle changes encouraged. Average weight loss should be 4-6lbs monthly. 12/21/2024 Insomnia, unspecified (ICD-10 - G47.00) 12/23/2024 Mixed hyperlipidemia (ICD-10 - E78.2) Krysta is 59 years old pleasant lady with generalized anxiety disorder, mixed hyperlipidemia, carpal tunnel syndrome, hypertension, cannabis use and history of opioid use in the past currently on Suboxone is here for follow-up. Plan is as follows Opioid dependence. -Urine toxicology reviewed with appropriately positive for Buprenorphine. -Liver function tests within normal limits -Wrappers counted, four Suboxone films left -No signs of divergent or apparent behavior -Prescription monitoring program reviewed -He has controlled substance contract -Continue current regimen -Counseling done Mixed hyperlipidemia. - Continue on atorvastatin 20 mg and repeat lipid panel in 4-6 weeks. Advised to take the medication in the evening. ARMIN: - Stable at this point. She recently lost her mother and best friend. She is currently in therapy. I have discussed adding Seroquel to the regimen given ongoing depression, however she is hesitant and would like to do more research and will keep us updated. Cannabis use - Abstinence is recommended. Complications have been discussed. Fatigue - Likely secondary to depression and grieving. However I will still rule out secondary reversible causes I have rendered the services for this patient under direct supervision of Dr. Taylor, who did not see the patient but was available upon request 12/23/2024 Opioid dependence, uncomplicated (ICD-10 - F11.20) Krysta is 59 years old pleasant lady with generalized anxiety disorder, mixed hyperlipidemia, carpal tunnel syndrome, hypertension, cannabis use and history of opioid use in the past currently on Suboxone is here for follow-up. Plan is as follows Opioid dependence. -Urine toxicology reviewed with appropriately positive for Buprenorphine. -Liver function tests within normal limits -Wrappers counted, four Suboxone films left -No signs of divergent or apparent behavior -Prescription monitoring program reviewed -He has controlled substance contract -Continue current regimen -Counseling done Mixed hyperlipidemia. - Continue on atorvastatin 20 mg and repeat lipid panel in 4-6 weeks. Advised to take the medication in the evening. ARMIN: - Stable at this point. She recently lost her mother and best friend. She is currently in therapy. I have discussed adding Seroquel to the regimen given ongoing depression, however she is hesitant and would like to do more research and will keep us updated. Cannabis use - Abstinence is recommended. Complications have been discussed. Fatigue - Likely secondary to depression and grieving. However I will still rule out secondary reversible causes I have rendered the services for this patient under direct supervision of Dr. Taylor, who did not see the patient but was available upon request 01/20/2025 Mixed hyperlipidemia (ICD-10 - E78.2) Krysta is 59 years old pleasant lady with generalized anxiety disorder, mixed hyperlipidemia, carpal tunnel syndrome, hypertension, cannabis use and history of opioid use in the past currently on Suboxone is here for follow-up. Plan is as follows Opioid dependence. -Urine toxicology reviewed with appropriately positive for Buprenorphine. -Liver function tests within normal limits -Wrappers counted, four Suboxone films left -No signs of divergent or apparent behavior -Prescription monitoring program reviewed -She has controlled substance contract -Continue current regimen -Counseling done Mixed hyperlipidemia. - Continue on atorvastatin 20 mg and repeat lipid panel in 4-6 weeks lower extremity neuropathy,, chronic lower extremity pain she cannot sleep at home mostly restless leg, she is on gabapentin 200 mg patient reports she cannot sleep and has a lot of lower extremity pain she also went to a sack keeper who prescribed a brace but patient insurance would not cover for it. She is getting a new insurance in February and most likely it would be covered. For now we will increase gabapentin to 300 mg at night from 200 mg at night. ARMIN: - Stable at this point. Marijuana use Abstinence is recommended. Complications have been discussed. 01/20/2025 Opioid dependence, uncomplicated (ICD-10 - F11.20) Krysta is 59 years old pleasant lady with generalized anxiety disorder, mixed hyperlipidemia, carpal tunnel syndrome, hypertension, cannabis use and history of opioid use in the past currently on Suboxone is here for follow-up. Plan is as follows Opioid dependence. -Urine toxicology reviewed with appropriately positive for Buprenorphine. -Liver function tests within normal limits -Wrappers counted, four Suboxone films left -No signs of divergent or apparent behavior -Prescription monitoring program reviewed -She has controlled substance contract -Continue current regimen -Counseling done Mixed hyperlipidemia. - Continue on atorvastatin 20 mg and repeat lipid panel in 4-6 weeks lower extremity neuropathy,, chronic lower extremity pain she cannot sleep at home mostly restless leg, she is on gabapentin 200 mg patient reports she cannot sleep and has a lot of lower extremity pain she also went to a sack keeper who prescribed a brace but patient insurance would not cover for it. She is getting a new insurance in February and most likely it would be covered. For now we will increase gabapentin to 300 mg at night from 200 mg at night. ARMIN: - Stable at this point. Marijuana use Abstinence is recommended. Complications have been discussed. 02/15/2025 Mixed hyperlipidemia (ICD-10 - E78.2) Krysta is 59 years old pleasant lady with generalized anxiety disorder, mixed hyperlipidemia, carpal tunnel syndrome, hypertension, cannabis use and history of opioid use in the past currently on Suboxone is here for follow-up. Plan is as follows Opioid dependence. -Urine toxicology reviewed with appropriately positive for Buprenorphine. -Liver function tests within normal limits -Wrappers counted, four Suboxone films left -No signs of divergent or apparent behavior -Prescription monitoring program reviewed -She has controlled substance contract -Continue current regimen -Counseling done Mixed hyperlipidemia. - Continue on atorvastatin 20 mg and repeat lipid panel in 4-6 weeks lower extremity neuropathy,, chronic lower extremity pain she cannot sleep at home mostly restless leg, she is on gabapentin 200 mg patient reports she cannot sleep and has a lot of lower extremity pain she also went to a sack keeper who prescribed a brace but patient insurance would not cover for it. She is getting a new insurance in February and most likely it would be covered. For now we will increase gabapentin to 300 mg at night from 200 mg at night. ARMIN: - Stable at this point. She will schedule an appointment with her mental health therapist. Advised on lifestyle modification like exercising as it does help with depression/anxiet y Insomnia. She is currently on trazodone 50 mg advised on increasing to 2 tablets. She can also consider magnesium supplement as well Marijuana use Abstinence is recommended. Complications have been discussed. 02/15/2025 Opioid dependence, uncomplicated (ICD-10 - F11.20) Krysta is 59 years old pleasant lady with generalized anxiety disorder, mixed hyperlipidemia, carpal tunnel syndrome, hypertension, cannabis use and history of opioid use in the past currently on Suboxone is here for follow-up. Plan is as follows Opioid dependence. -Urine toxicology reviewed with appropriately positive for Buprenorphine. -Liver function tests within normal limits -Wrappers counted, four Suboxone films left -No signs of divergent or apparent behavior -Prescription monitoring program reviewed -She has controlled substance contract -Continue current regimen -Counseling done Mixed hyperlipidemia. - Continue on atorvastatin 20 mg and repeat lipid panel in 4-6 weeks lower extremity neuropathy,, chronic lower extremity pain she cannot sleep at home mostly restless leg, she is on gabapentin 200 mg patient reports she cannot sleep and has a lot of lower extremity pain she also went to a sack keeper who prescribed a brace but patient insurance would not cover for it. She is getting a new insurance in February and most likely it would be covered. For now we will increase gabapentin to 300 mg at night from 200 mg at night. ARMIN: - Stable at this point. She will schedule an appointment with her mental health therapist. Advised on lifestyle modification like exercising as it does help with depression/anxiet y Insomnia. She is currently on trazodone 50 mg advised on increasing to 2 tablets. She can also consider magnesium supplement as well Marijuana use Abstinence is recommended. Complications have been discussed. 03/17/2025 Mixed hyperlipidemia (ICD-10 - E78.2) Krysta is 59 years old pleasant lady with generalized anxiety disorder, mixed hyperlipidemia, carpal tunnel syndrome, hypertension, cannabis use and history of opioid use in the past currently on Suboxone is here for follow-up. Plan is as follows Opioid dependence. -Urine toxicology reviewed with appropriately positive for Buprenorphine. -Liver function tests within normal limits -Wrappers counted, four Suboxone films left -No signs of divergent or apparent behavior -Prescription monitoring program reviewed -She has controlled substance contract -Continue current regimen -Counseling done Mixed hyperlipidemia. - Continue on atorvastatin 20 mg and repeat lipid panel in 4-6 weeks lower extremity neuropathy,, chronic lower extremity pain she cannot sleep at home mostly restless leg, she is on gabapentin 200 mg patient reports she cannot sleep and has a lot of lower extremity pain she also went to a sack keeper who prescribed a brace but patient insurance would not cover for it. She is getting a new insurance in February and most likely it would be covered. For now we will increase gabapentin to 300 mg at night from 200 mg at night. ARMIN: - Stable at this point. She will schedule an appointment with her mental health therapist. Advised on lifestyle modification like exercising as it does help with depression/anxiet y Insomnia. Stable continue on trazodone.Add magnesium supplement Marijuana use Abstinence is recommended. Complications have been discussed. General concerns have been discussed I have rendered the services for this patient under direct supervision of Dr. Taylor, who did not see the patient but was available upon request 03/17/2025 Opioid dependence, uncomplicated (ICD-10 - F11.20) Krysta is 59 years old pleasant lady with generalized anxiety disorder, mixed hyperlipidemia, carpal tunnel syndrome, hypertension, cannabis use and history of opioid use in the past currently on Suboxone is here for follow-up. Plan is as follows Opioid dependence. -Urine toxicology reviewed with appropriately positive for Buprenorphine. -Liver function tests within normal limits -Wrappers counted, four Suboxone films left -No signs of divergent or apparent behavior -Prescription monitoring program reviewed -She has controlled substance contract -Continue current regimen -Counseling done Mixed hyperlipidemia. - Continue on atorvastatin 20 mg and repeat lipid panel in 4-6 weeks lower extremity neuropathy,, chronic lower extremity pain she cannot sleep at home mostly restless leg, she is on gabapentin 200 mg patient reports she cannot sleep and has a lot of lower extremity pain she also went to a sack keeper who prescribed a brace but patient insurance would not cover for it. She is getting a new insurance in February and most likely it would be covered. For now we will increase gabapentin to 300 mg at night from 200 mg at night. ARMIN: - Stable at this point. She will schedule an appointment with her mental health therapist. Advised on lifestyle modification like exercising as it does help with depression/anxiet y Insomnia. Stable continue on trazodone.Add magnesium supplement Marijuana use Abstinence is recommended. Complications have been discussed. General concerns have been discussed I have rendered the services for this patient under direct supervision of Dr. Taylor, who did not see the patient but was available upon request 03/23/2025 Opioid dependence, uncomplicated (ICD-10 - F11.20) 04/19/2025 Mixed hyperlipidemia (ICD-10 - E78.2) Krysta is 59 years old pleasant lady with generalized anxiety disorder, mixed hyperlipidemia, carpal tunnel syndrome, hypertension, cannabis use and history of opioid use in the past currently on Suboxone is here for follow-up. Plan is as follows Opioid dependence. -Urine toxicology reviewed with appropriately positive for Buprenorphine. -Liver function tests within normal limits -Wrappers counted, four Suboxone films left -No signs of divergent or apparent behavior -Prescription monitoring program reviewed -She has controlled substance contract -Continue current regimen -Counseling done Mixed hyperlipidemia. - Continue on atorvastatin 20 mg. Pending lipid panel lower extremity neuropathy: Stable. Continue on the same regimen. HTN: Blood pressure is well controlled. Continue on the same regimen. ARMIN: - Stable at this point. She will schedule an appointment with her mental health therapist. Advised on lifestyle modification like exercising as it does help with depression/anxiet y Insomnia. Stable continue on trazodone.Add magnesium supplement Marijuana use Abstinence is recommended. Complications have been discussed. Atypical chest pain. EKG is done in the office today with HR of 63bpm, No ST elevation/depress ion. No BBB. normal intervals. Most likely indigestion could also be a factor of increased stress and anxiety. Discussed a trial of anti-acid. She will also start seeing her therapist and she was referred before to psychiatrist. General concerns have been discussed I have rendered the services for this patient under direct supervision of Dr. Taylor, who did not see the patient but was available upon request 04/19/2025 Opioid dependence, uncomplicated (ICD-10 - F11.20) Krysta is 59 years old pleasant lady with generalized anxiety disorder, mixed hyperlipidemia, carpal tunnel syndrome, hypertension, cannabis use and history of opioid use in the past currently on Suboxone is here for follow-up. Plan is as follows Opioid dependence. -Urine toxicology reviewed with appropriately positive for Buprenorphine. -Liver function tests within normal limits -Wrappers counted, four Suboxone films left -No signs of divergent or apparent behavior -Prescription monitoring program reviewed -She has controlled substance contract -Continue current regimen -Counseling done Mixed hyperlipidemia. - Continue on atorvastatin 20 mg. Pending lipid panel lower extremity neuropathy: Stable. Continue on the same regimen. HTN: Blood pressure is well controlled. Continue on the same regimen. ARMIN: - Stable at this point. She will schedule an appointment with her mental health therapist. Advised on lifestyle modification like exercising as it does help with depression/anxiet y Insomnia. Stable continue on trazodone.Add magnesium supplement Marijuana use Abstinence is recommended. Complications have been discussed. Atypical chest pain. EKG is done in the office today with HR of 63bpm, No ST elevation/depress ion. No BBB. normal intervals. Most likely indigestion could also be a factor of increased stress and anxiety. Discussed a trial of anti-acid. She will also start seeing her therapist and she was referred before to psychiatrist. General concerns have been discussed I have rendered the services for this patient under direct supervision of Dr. Taylor, who did not see the patient but was available upon request 10/28/2024 Mixed hyperlipidemia (ICD-10 - E78.2) Krysta is 59 years old pleasant lady with generalized anxiety disorder, mixed hyperlipidemia, carpal tunnel syndrome, hypertension, cannabis use and history of opioid use in the past currently on Suboxone is here for follow-up. Plan is as follows Opioid dependence. -Urine toxicology reviewed with appropriately positive for Buprenorphine. -Liver function tests within normal limits -Wrappers counted, four Suboxone films left -No signs of divergent or apparent behavior -Prescription monitoring program reviewed -He has controlled substance contract -Continue current regimen -Counseling done Mixed hyperlipidemia. - Started on atorvastatin 20 mg and repeat lipid panel in 4-6 weeks. Advised to take the medication in the evening. Obesity. Encouraged to lose weight. Dietary modifications and lifestyle changes encouraged. Average weight loss should be 4-6lbs monthly. 10/28/2024 Opioid dependence, uncomplicated (ICD-10 - F11.20) Krysta is 59 years old pleasant lady with generalized anxiety disorder, mixed hyperlipidemia, carpal tunnel syndrome, hypertension, cannabis use and history of opioid use in the past currently on Suboxone is here for follow-up. Plan is as follows Opioid dependence. -Urine toxicology reviewed with appropriately positive for Buprenorphine. -Liver function tests within normal limits -Wrappers counted, four Suboxone films left -No signs of divergent or apparent behavior -Prescription monitoring program reviewed -He has controlled substance contract -Continue current regimen -Counseling done Mixed hyperlipidemia. - Started on atorvastatin 20 mg and repeat lipid panel in 4-6 weeks. Advised to take the medication in the evening. Obesity. Encouraged to lose weight. Dietary modifications and lifestyle changes encouraged. Average weight loss should be 4-6lbs monthly. 10/28/2024 Generalized anxiety disorder (ICD-10 - F41.1) Krysta is 59 years old pleasant lady with generalized anxiety disorder, mixed hyperlipidemia, carpal tunnel syndrome, hypertension, cannabis use and history of opioid use in the past currently on Suboxone is here for follow-up. Plan is as follows Opioid dependence. -Urine toxicology reviewed with appropriately positive for Buprenorphine. -Liver function tests within normal limits -Wrappers counted, four Suboxone films left -No signs of divergent or apparent behavior -Prescription monitoring program reviewed -He has controlled substance contract -Continue current regimen -Counseling done Mixed hyperlipidemia. - Started on atorvastatin 20 mg and repeat lipid panel in 4-6 weeks. Advised to take the medication in the evening. Obesity. Encouraged to lose weight. Dietary modifications and lifestyle changes encouraged. Average weight loss should be 4-6lbs monthly. 04/19/2025 Generalized anxiety disorder (ICD-10 - F41.1) Krysta is 59 years old pleasant lady with generalized anxiety disorder, mixed hyperlipidemia, carpal tunnel syndrome, hypertension, cannabis use and history of opioid use in the past currently on Suboxone is here for follow-up. Plan is as follows Opioid dependence. -Urine toxicology reviewed with appropriately positive for Buprenorphine. -Liver function tests within normal limits -Wrappers counted, four Suboxone films left -No signs of divergent or apparent behavior -Prescription monitoring program reviewed -She has controlled substance contract -Continue current regimen -Counseling done Mixed hyperlipidemia. - Continue on atorvastatin 20 mg. Pending lipid panel lower extremity neuropathy: Stable. Continue on the same regimen. HTN: Blood pressure is well controlled. Continue on the same regimen. ARMIN: - Stable at this point. She will schedule an appointment with her mental health therapist. Advised on lifestyle modification like exercising as it does help with depression/anxiet y Insomnia. Stable continue on trazodone.Add magnesium supplement Marijuana use Abstinence is recommended. Complications have been discussed. Atypical chest pain. EKG is done in the office today with HR of 63bpm, No ST elevation/depress ion. No BBB. normal intervals. Most likely indigestion could also be a factor of increased stress and anxiety. Discussed a trial of anti-acid. She will also start seeing her therapist and she was referred before to psychiatrist. General concerns have been discussed I have rendered the services for this patient under direct supervision of Dr. Taylor, who did not see the patient but was available upon request 02/15/2025 Generalized anxiety disorder (ICD-10 - F41.1) Krysta is 59 years old pleasant lady with generalized anxiety disorder, mixed hyperlipidemia, carpal tunnel syndrome, hypertension, cannabis use and history of opioid use in the past currently on Suboxone is here for follow-up. Plan is as follows Opioid dependence. -Urine toxicology reviewed with appropriately positive for Buprenorphine. -Liver function tests within normal limits -Wrappers counted, four Suboxone films left -No signs of divergent or apparent behavior -Prescription monitoring program reviewed -She has controlled substance contract -Continue current regimen -Counseling done Mixed hyperlipidemia. - Continue on atorvastatin 20 mg and repeat lipid panel in 4-6 weeks lower extremity neuropathy,, chronic lower extremity pain she cannot sleep at home mostly restless leg, she is on gabapentin 200 mg patient reports she cannot sleep and has a lot of lower extremity pain she also went to a sack keeper who prescribed a brace but patient insurance would not cover for it. She is getting a new insurance in February and most likely it would be covered. For now we will increase gabapentin to 300 mg at night from 200 mg at night. ARMIN: - Stable at this point. She will schedule an appointment with her mental health therapist. Advised on lifestyle modification like exercising as it does help with depression/anxiet y Insomnia. She is currently on trazodone 50 mg advised on increasing to 2 tablets. She can also consider magnesium supplement as well Marijuana use Abstinence is recommended. Complications have been discussed. 03/17/2025 Generalized anxiety disorder (ICD-10 - F41.1) Krysta is 59 years old pleasant lady with generalized anxiety disorder, mixed hyperlipidemia, carpal tunnel syndrome, hypertension, cannabis use and history of opioid use in the past currently on Suboxone is here for follow-up. Plan is as follows Opioid dependence. -Urine toxicology reviewed with appropriately positive for Buprenorphine. -Liver function tests within normal limits -Wrappers counted, four Suboxone films left -No signs of divergent or apparent behavior -Prescription monitoring program reviewed -She has controlled substance contract -Continue current regimen -Counseling done Mixed hyperlipidemia. - Continue on atorvastatin 20 mg and repeat lipid panel in 4-6 weeks lower extremity neuropathy,, chronic lower extremity pain she cannot sleep at home mostly restless leg, she is on gabapentin 200 mg patient reports she cannot sleep and has a lot of lower extremity pain she also went to a sack keeper who prescribed a brace but patient insurance would not cover for it. She is getting a new insurance in February and most likely it would be covered. For now we will increase gabapentin to 300 mg at night from 200 mg at night. ARMIN: - Stable at this point. She will schedule an appointment with her mental health therapist. Advised on lifestyle modification like exercising as it does help with depression/anxiet y Insomnia. Stable continue on trazodone.Add magnesium supplement Marijuana use Abstinence is recommended. Complications have been discussed. General concerns have been discussed I have rendered the services for this patient under direct supervision of Dr. Taylor, who did not see the patient but was available upon request 01/20/2025 Generalized anxiety disorder (ICD-10 - F41.1) Krysta is 59 years old pleasant lady with generalized anxiety disorder, mixed hyperlipidemia, carpal tunnel syndrome, hypertension, cannabis use and history of opioid use in the past currently on Suboxone is here for follow-up. Plan is as follows Opioid dependence. -Urine toxicology reviewed with appropriately positive for Buprenorphine. -Liver function tests within normal limits -Wrappers counted, four Suboxone films left -No signs of divergent or apparent behavior -Prescription monitoring program reviewed -She has controlled substance contract -Continue current regimen -Counseling done Mixed hyperlipidemia. - Continue on atorvastatin 20 mg and repeat lipid panel in 4-6 weeks lower extremity neuropathy,, chronic lower extremity pain she cannot sleep at home mostly restless leg, she is on gabapentin 200 mg patient reports she cannot sleep and has a lot of lower extremity pain she also went to a sack keeper who prescribed a brace but patient insurance would not cover for it. She is getting a new insurance in February and most likely it would be covered. For now we will increase gabapentin to 300 mg at night from 200 mg at night. ARMIN: - Stable at this point. Marijuana use Abstinence is recommended. Complications have been discussed. 12/23/2024 Generalized anxiety disorder (ICD-10 - F41.1) Krysta is 59 years old pleasant lady with generalized anxiety disorder, mixed hyperlipidemia, carpal tunnel syndrome, hypertension, cannabis use and history of opioid use in the past currently on Suboxone is here for follow-up. Plan is as follows Opioid dependence. -Urine toxicology reviewed with appropriately positive for Buprenorphine. -Liver function tests within normal limits -Wrappers counted, four Suboxone films left -No signs of divergent or apparent behavior -Prescription monitoring program reviewed -He has controlled substance contract -Continue current regimen -Counseling done Mixed hyperlipidemia. - Continue on atorvastatin 20 mg and repeat lipid panel in 4-6 weeks. Advised to take the medication in the evening. ARMIN: - Stable at this point. She recently lost her mother and best friend. She is currently in therapy. I have discussed adding Seroquel to the regimen given ongoing depression, however she is hesitant and would like to do more research and will keep us updated. Cannabis use - Abstinence is recommended. Complications have been discussed. Fatigue - Likely secondary to depression and grieving. However I will still rule out secondary reversible causes I have rendered the services for this patient under direct supervision of Dr. Taylor, who did not see the patient but was available upon request 11/25/2024 Generalized anxiety disorder (ICD-10 - F41.1) Krysta is 59 years old pleasant lady with generalized anxiety disorder, mixed hyperlipidemia, carpal tunnel syndrome, hypertension, cannabis use and history of opioid use in the past currently on Suboxone is here for follow-up. Plan is as follows Opioid dependence. -Urine toxicology reviewed with appropriately positive for Buprenorphine. -Liver function tests within normal limits -Wrappers counted, four Suboxone films left -No signs of divergent or apparent behavior -Prescription monitoring program reviewed -He has controlled substance contract -Continue current regimen -Counseling done Mixed hyperlipidemia. - Continue on atorvastatin 20 mg and repeat lipid panel in 4-6 weeks. Advised to take the medication in the evening. ARMIN: - Stable at this point. She recently lost her mother and best friend. She is currently in therapy. Obesity. - She is losing steady weight. She will scheduling an appt for weight consultation. Encouraged to lose weight. Dietary modifications and lifestyle changes encouraged. Average weight loss should be 4-6lbs monthly. 09/30/2024 Other obesity due to excess calories (ICD-10 - E66.09) Krysta is 58 years old pleasant lady with generalized anxiety disorder, mixed hyperlipidemia, carpal tunnel syndrome, hypertension, cannabis use and history of opioid use in the past currently on Suboxone is here for follow-up. Plan is as follows Mixed hyperlipidemia. Started on atorvastatin 20 mg and repeat lipid panel in 4-6 weeks. Advised to take the medication in the evening. CKD stage II. Discussed with the patient to stay appropriately hydrated and take Tylenol for pain. This can be multifactorial but no intervention needed. Generalized anxiety disorder. She is stable and she follows up with Miss Parham for counseling. Impaired fasting glucose. Dietary restrictions and check A1c in future. Obesity. Encouraged to lose weight. Dietary modifications and lifestyle changes encouraged. Average weight loss should be 6 pounds a month. Opioid dependence. -Urine toxicology reviewed with appropriately positive and negative. -Liver function tests within normal limits -Wrappers counted, four Suboxone films left -No signs of divergent or apparent behavior -Prescription monitoring program reviewed -He has controlled substance contract -Continue current regimen -Counseling done 08/15/2024 Generalized anxiety disorder (ICD-10 - F41.1) Mrs. Hinkle is 58 years old lady with a history of generalized anxiety disorder here for follow up s/p ER discharge. Plan is as follows: Hypertension. - Her blood pressure is well controlled. Continue on the same regimen. Cut back on sodium intake. Advised appropriate hydration, cardio exercises and weight loss. - EKG was done 2 weeks ago. She has echo appointment coming up in October. Generalized anxiety disorder. Insomnia: - PHQ 9 of 14. She is on sertraline 100 mg twice a day. She had side effects from adjunct medications. Given that she has insomnia and depression, I started patient on low dose trazodone. She is also going to be on gabapentin for restless leg syndrome which will also help with sleep and depression. She has an established therapy. Referred patient to psychiatry. Will follow in 4 weeks Class 1 obesity. -Advised dietary restrictions and regimental exercise. Goal is to lose 5-6 lbs a month. Opioid dependence: - Stable on Suboxone. Utox is done in the office and it is positive for Suboxone. Continue on the same regimen. - Positive for fentanyl we will send it for confirmation. Cannabis use - Advised on smoking cessation given its side effects. Patient states that she is working on cutting down on smoking marijuana. Restless leg syndrome: - Started patient on gabapentin. Side effects have been discussed. Patient agrees. Fatigue Snoring - I will rule out underlying causes including thyroid, vitamin D, CBC, folate and B12. I also referred patient to sleep medicine. Carpal tunnel syndrome bilateral - Advised on use of splint, NSAIDs. Referred patient to nerve conduction study for further management. Screening for breast cancer - Ordered mammogram Screening for colon cancer - She has a colonoscopy coming up. Referred patient to [facility] for Pap smear, pelvic examination, breast exam. Otherwise, she is up-to-date on vaccinations. Screening blood work before next appointment. General health concerns discussed with patient. I have rendered the services for this patient under direct supervision of Dr. Taylor, who did not see the patient but was available upon request I was present and available in the office during the visit 08/12/2024 Dietary counseling and surveillance (ICD-10 - Z71.3) Mrs. Hinkle is 58 years old lady with a history of generalized anxiety disorder here for follow up s/p ER discharge. Plan is as follows: Hypertension. Her blood pressure is running high in the office today. Cut back on sodium intake. Advised appropriate hydration, cardio exercises and weight loss. Start amlodipine 2.5 MG once a day. Generalized anxiety disorder. Mood is stable on Sertraline once a day. Class 1 obesity. Advised dietary restrictions and regimental exercise. Goal is to lose 5-6 lbs a month. Screening blood work before next appointment. General health concerns discussed with patient. Scribe services used to formulate this note under HIPAA compliance and under [place] law mandated for scribe services. Patient aware of service. Verbal consent and written consent taken from the patient. Patient understands and verbalizes understanding of the scribes services and all questions answered regarding scribes services. Patient agrees to use of scribes services. 07/08/2024 Drug abuse counseling and surveillance of drug abuser (ICD-10 - Z71.51) Patient is here today called today for follow-up on opioid use disorder. Plan is as follows Patient requests for ongoing treatment with Suboxone for opioid dependence and med compliance requirement today satisfying the federation of state Board recommendation and guidelines for judicious, supervised Suboxone dispensing. Patient agrees to a personal interview for renewal or further treatment As planned at next scheduled visit or sooner if conditions change. Medication contract agreement and compliance reinforced. All risks and benefits associated with Suboxone utilization, safe use and storage was discussed in detail and patient voluntarily accepts all obligations. Toxicology and prescription monitoring program is followed. As such controlled substance use required judicious monitoring to excess patient's compliance with the mutually agreed upon controlled substance use agreement which has been signed by the patient at the initiation of the controlled substance prescribing. Therefore following state, Federal, CMS guidelines for controlled substance testing policies. Patient has been assessed based on psychometric risks to, prescription monitoring program, toxicology tests results monitoring and compliance and this patient therefore will be tested on site guidelines. Urine toxicology reviewed and is positive for buprenorphine and marijuana. Liver function tests were reviewed and were within normal limits ORT for narcotic abuse done and he is moderate risk Wrappers will be counted on physical visit Prescription monitoring program reviewed Controlled substance contract signed No signs of diversion or aberrant behavior Continue current regimen Counseling. Patient goes for counseling Generalized anxiety disorder. Mood is stable on Sertraline. Irregular rhythm: - EKG is done in the office today, HR of 57bpm, Sinus rhythm.PAC and PVC are noted. No ST elevation or depression is noted I have rendered the services for this patient under direct supervision of Dr. Taylor, who did not see the patient but was available upon request 05/27/2024 Generalized anxiety disorder (ICD-10 - F41.1) Patient is here today called today for follow-up on opioid use disorder. Plan is as follows Patient requests for ongoing treatment with Suboxone for opioid dependence and med compliance requirement today satisfying the [place] of state Board recommendation and guidelines for judicious, supervised Suboxone dispensing. Patient agrees to a personal interview for renewal or further treatment As planned at next scheduled visit or sooner if conditions change. Medication contract agreement and compliance reinforced. All risks and benefits associated with Suboxone utilization, safe use and storage was discussed in detail and patient voluntarily accepts all obligations. Toxicology and prescription monitoring program is followed. As such controlled substance use required judicious monitoring to excess patient's compliance with the mutually agreed upon controlled substance use agreement which has been signed by the patient at the initiation of the controlled substance prescribing. Therefore following state, Federal, [facility] guidelines for controlled substance testing policies. Patient has been assessed based on psychometric risks to, prescription monitoring program, toxicology tests results monitoring and compliance and this patient therefore will be tested on site guidelines. Urine toxicology reviewed and is positive for buprenorphine and marijuana. Liver function tests were reviewed and were within normal limits ORT for narcotic abuse done and he is moderate risk Wrappers will be counted on physical visit Prescription monitoring program reviewed Controlled substance contract signed No signs of diversion or aberrant behavior Continue current regimen Counseling. Patient goes for counseling Generalized anxiety disorder. Mood is stable on Sertraline. Blurred vision. Referred to ophthalmology for eye screening Scribe services used to formulate this note under HIPAA compliance and under [place] law mandated for scribe services. Patient aware of service. Verbal consent and written consent taken from the patient. Patient understands and verbalizes understanding of the scribes services and all questions answered regarding scribes services. Patient agrees to use of scribes services. 07/08/2024 Generalized anxiety disorder (ICD-10 - F41.1) Patient is here today called today for follow-up on opioid use disorder. Plan is as follows Patient requests for ongoing treatment with Suboxone for opioid dependence and med compliance requirement today satisfying the fed[place] of state Board recommendation and guidelines for judicious, supervised Suboxone dispensing. Patient agrees to a personal interview for renewal or further treatment As planned at next scheduled visit or sooner if conditions change. Medication contract agreement and compliance reinforced. All risks and benefits associated with Suboxone utilization, safe use and storage was discussed in detail and patient voluntarily accepts all obligations. Toxicology and prescription monitoring program is followed. As such controlled substance use required judicious monitoring to excess patient's compliance with the mutually agreed upon controlled substance use agreement which has been signed by the patient at the initiation of the controlled substance prescribing. Therefore following state, Federal, CMS guidelines for controlled substance testing policies. Patient has been assessed based on psychometric risks to, prescription monitoring program, toxicology tests results monitoring and compliance and this patient therefore will be tested on site guidelines. Urine toxicology reviewed and is positive for buprenorphine and marijuana. Liver function tests were reviewed and were within normal limits ORT for narcotic abuse done and he is moderate risk Wrappers will be counted on physical visit Prescription monitoring program reviewed Controlled substance contract signed No signs of diversion or aberrant behavior Continue current regimen Counseling. Patient goes for counseling Generalized anxiety disorder. Mood is stable on Sertraline. Irregular rhythm: - EKG is done in the office today, HR of 57bpm, Sinus rhythm.PAC and PVC are noted. No ST elevation or depression is noted I have rendered the services for this patient under direct supervision of Dr. Taylor, who did not see the patient but was available upon request 08/15/2024 Insomnia, unspecified (ICD-10 - G47.00) Mrs. Hinkle is 58 years old lady with a history of generalized anxiety disorder here for follow up s/p ER discharge. Plan is as follows: Hypertension. - Her blood pressure is well controlled. Continue on the same regimen. Cut back on sodium intake. Advised appropriate hydration, cardio exercises and weight loss. - EKG was done 2 weeks ago. She has echo appointment coming up in October. Generalized anxiety disorder. Insomnia: - PHQ 9 of 14. She is on sertraline 100 mg twice a day. She had side effects from adjunct medications. Given that she has insomnia and depression, I started patient on low dose trazodone. She is also going to be on gabapentin for restless leg syndrome which will also help with sleep and depression. She has an established therapy. Referred patient to psychiatry. Will follow in 4 weeks Class 1 obesity. -Advised dietary restrictions and regimental exercise. Goal is to lose 5-6 lbs a month. Opioid dependence: - Stable on Suboxone. Utox is done in the office and it is positive for Suboxone. Continue on the same regimen. - Positive for fentanyl we will send it for confirmation. Cannabis use - Advised on smoking cessation given its side effects. Patient states that she is working on cutting down on smoking marijuana. Restless leg syndrome: - Started patient on gabapentin. Side effects have been discussed. Patient agrees. Fatigue Snoring - I will rule out underlying causes including thyroid, vitamin D, CBC, folate and B12. I also referred patient to sleep medicine. Carpal tunnel syndrome bilateral - Advised on use of splint, NSAIDs. Referred patient to nerve conduction study for further management. Screening for breast cancer - Ordered mammogram Screening for colon cancer - She has a colonoscopy coming up. Referred patient to [facility] for Pap smear, pelvic examination, breast exam. Otherwise, she is up-to-date on vaccinations. Screening blood work before next appointment. General health concerns discussed with patient. I have rendered the services for this patient under direct supervision of Dr. Taylor, who did not see the patient but was available upon request I was present and available in the office during the visit 09/30/2024 Opioid dependence, uncomplicated (ICD-10 - F11.20) Krysta is 58 years old pleasant lady with generalized anxiety disorder, mixed hyperlipidemia, carpal tunnel syndrome, hypertension, cannabis use and history of opioid use in the past currently on Suboxone is here for follow-up. Plan is as follows Mixed hyperlipidemia. Started on atorvastatin 20 mg and repeat lipid panel in 4-6 weeks. Advised to take the medication in the evening. CKD stage II. Discussed with the patient to stay appropriately hydrated and take Tylenol for pain. This can be multifactorial but no intervention needed. Generalized anxiety disorder. She is stable and she follows up with Miss Parham for counseling. Impaired fasting glucose. Dietary restrictions and check A1c in future. Obesity. Encouraged to lose weight. Dietary modifications and lifestyle changes encouraged. Average weight loss should be 6 pounds a month. Opioid dependence. -Urine toxicology reviewed with appropriately positive and negative. -Liver function tests within normal limits -Wrappers counted, four Suboxone films left -No signs of divergent or apparent behavior -Prescription monitoring program reviewed -He has controlled substance contract -Continue current regimen -Counseling done 11/25/2024 Cannabis use, unspecified, uncomplicated (ICD-10 - F12.90) Krysta is 59 years old pleasant lady with generalized anxiety disorder, mixed hyperlipidemia, carpal tunnel syndrome, hypertension, cannabis use and history of opioid use in the past currently on Suboxone is here for follow-up. Plan is as follows Opioid dependence. -Urine toxicology reviewed with appropriately positive for Buprenorphine. -Liver function tests within normal limits -Wrappers counted, four Suboxone films left -No signs of divergent or apparent behavior -Prescription monitoring program reviewed -He has controlled substance contract -Continue current regimen -Counseling done Mixed hyperlipidemia. - Continue on atorvastatin 20 mg and repeat lipid panel in 4-6 weeks. Advised to take the medication in the evening. ARMIN: - Stable at this point. She recently lost her mother and best friend. She is currently in therapy. Obesity. - She is losing steady weight. She will scheduling an appt for weight consultation. Encouraged to lose weight. Dietary modifications and lifestyle changes encouraged. Average weight loss should be 4-6lbs monthly. 01/20/2025 Cannabis use, unspecified, uncomplicated (ICD-10 - F12.90) Krysta is 59 years old pleasant lady with generalized anxiety disorder, mixed hyperlipidemia, carpal tunnel syndrome, hypertension, cannabis use and history of opioid use in the past currently on Suboxone is here for follow-up. Plan is as follows Opioid dependence. -Urine toxicology reviewed with appropriately positive for Buprenorphine. -Liver function tests within normal limits -Wrappers counted, four Suboxone films left -No signs of divergent or apparent behavior -Prescription monitoring program reviewed -She has controlled substance contract -Continue current regimen -Counseling done Mixed hyperlipidemia. - Continue on atorvastatin 20 mg and repeat lipid panel in 4-6 weeks lower extremity neuropathy,, chronic lower extremity pain she cannot sleep at home mostly restless leg, she is on gabapentin 200 mg patient reports she cannot sleep and has a lot of lower extremity pain she also went to a sack keeper who prescribed a brace but patient insurance would not cover for it. She is getting a new insurance in February and most likely it would be covered. For now we will increase gabapentin to 300 mg at night from 200 mg at night. ARMIN: - Stable at this point. Marijuana use Abstinence is recommended. Complications have been discussed. 12/23/2024 Cannabis use, unspecified, uncomplicated (ICD-10 - F12.90) Krysta is 59 years old pleasant lady with generalized anxiety disorder, mixed hyperlipidemia, carpal tunnel syndrome, hypertension, cannabis use and history of opioid use in the past currently on Suboxone is here for follow-up. Plan is as follows Opioid dependence. -Urine toxicology reviewed with appropriately positive for Buprenorphine. -Liver function tests within normal limits -Wrappers counted, four Suboxone films left -No signs of divergent or apparent behavior -Prescription monitoring program reviewed -He has controlled substance contract -Continue current regimen -Counseling done Mixed hyperlipidemia. - Continue on atorvastatin 20 mg and repeat lipid panel in 4-6 weeks. Advised to take the medication in the evening. ARMIN: - Stable at this point. She recently lost her mother and best friend. She is currently in therapy. I have discussed adding Seroquel to the regimen given ongoing depression, however she is hesitant and would like to do more research and will keep us updated. Cannabis use - Abstinence is recommended. Complications have been discussed. Fatigue - Likely secondary to depression and grieving. However I will still rule out secondary reversible causes I have rendered the services for this patient under direct supervision of Dr. Taylor, who did not see the patient but was available upon request 02/15/2025 Cannabis use, unspecified, uncomplicated (ICD-10 - F12.90) Krysta is 59 years old pleasant lady with generalized anxiety disorder, mixed hyperlipidemia, carpal tunnel syndrome, hypertension, cannabis use and history of opioid use in the past currently on Suboxone is here for follow-up. Plan is as follows Opioid dependence. -Urine toxicology reviewed with appropriately positive for Buprenorphine. -Liver function tests within normal limits -Wrappers counted, four Suboxone films left -No signs of divergent or apparent behavior -Prescription monitoring program reviewed -She has controlled substance contract -Continue current regimen -Counseling done Mixed hyperlipidemia. - Continue on atorvastatin 20 mg and repeat lipid panel in 4-6 weeks lower extremity neuropathy,, chronic lower extremity pain she cannot sleep at home mostly restless leg, she is on gabapentin 200 mg patient reports she cannot sleep and has a lot of lower extremity pain she also went to a sack keeper who prescribed a brace but patient insurance would not cover for it. She is getting a new insurance in February and most likely it would be covered. For now we will increase gabapentin to 300 mg at night from 200 mg at night. ARMIN: - Stable at this point. She will schedule an appointment with her mental health therapist. Advised on lifestyle modification like exercising as it does help with depression/anxiet y Insomnia. She is currently on trazodone 50 mg advised on increasing to 2 tablets. She can also consider magnesium supplement as well Marijuana use Abstinence is recommended. Complications have been discussed. 03/17/2025 Cannabis use, unspecified, uncomplicated (ICD-10 - F12.90) Krysta is 59 years old pleasant lady with generalized anxiety disorder, mixed hyperlipidemia, carpal tunnel syndrome, hypertension, cannabis use and history of opioid use in the past currently on Suboxone is here for follow-up. Plan is as follows Opioid dependence. -Urine toxicology reviewed with appropriately positive for Buprenorphine. -Liver function tests within normal limits -Wrappers counted, four Suboxone films left -No signs of divergent or apparent behavior -Prescription monitoring program reviewed -She has controlled substance contract -Continue current regimen -Counseling done Mixed hyperlipidemia. - Continue on atorvastatin 20 mg and repeat lipid panel in 4-6 weeks lower extremity neuropathy,, chronic lower extremity pain she cannot sleep at home mostly restless leg, she is on gabapentin 200 mg patient reports she cannot sleep and has a lot of lower extremity pain she also went to a sack keeper who prescribed a brace but patient insurance would not cover for it. She is getting a new insurance in February and most likely it would be covered. For now we will increase gabapentin to 300 mg at night from 200 mg at night. ARMIN: - Stable at this point. She will schedule an appointment with her mental health therapist. Advised on lifestyle modification like exercising as it does help with depression/anxiet y Insomnia. Stable continue on trazodone.Add magnesium supplement Marijuana use Abstinence is recommended. Complications have been discussed. General concerns have been discussed I have rendered the services for this patient under direct supervision of Dr. Taylor, who did not see the patient but was available upon request 04/19/2025 Essential (primary) hypertension (ICD-10 - I10) Krysta is 59 years old pleasant lady with generalized anxiety disorder, mixed hyperlipidemia, carpal tunnel syndrome, hypertension, cannabis use and history of opioid use in the past currently on Suboxone is here for follow-up. Plan is as follows Opioid dependence. -Urine toxicology reviewed with appropriately positive for Buprenorphine. -Liver function tests within normal limits -Wrappers counted, four Suboxone films left -No signs of divergent or apparent behavior -Prescription monitoring program reviewed -She has controlled substance contract -Continue current regimen -Counseling done Mixed hyperlipidemia. - Continue on atorvastatin 20 mg. Pending lipid panel lower extremity neuropathy: Stable. Continue on the same regimen. HTN: Blood pressure is well controlled. Continue on the same regimen. ARMIN: - Stable at this point. She will schedule an appointment with her mental health therapist. Advised on lifestyle modification like exercising as it does help with depression/anxiet y Insomnia. Stable continue on trazodone.Add magnesium supplement Marijuana use Abstinence is recommended. Complications have been discussed. Atypical chest pain. EKG is done in the office today with HR of 63bpm, No ST elevation/depress ion. No BBB. normal intervals. Most likely indigestion could also be a factor of increased stress and anxiety. Discussed a trial of anti-acid. She will also start seeing her therapist and she was referred before to psychiatrist. General concerns have been discussed I have rendered the services for this patient under direct supervision of Dr. Taylor, who did not see the patient but was available upon request 10/28/2024 Other obesity due to excess calories (ICD-10 - E66.09) Krysta is 59 years old pleasant lady with generalized anxiety disorder, mixed hyperlipidemia, carpal tunnel syndrome, hypertension, cannabis use and history of opioid use in the past currently on Suboxone is here for follow-up. Plan is as follows Opioid dependence. -Urine toxicology reviewed with appropriately positive for Buprenorphine. -Liver function tests within normal limits -Wrappers counted, four Suboxone films left -No signs of divergent or apparent behavior -Prescription monitoring program reviewed -He has controlled substance contract -Continue current regimen -Counseling done Mixed hyperlipidemia. - Started on atorvastatin 20 mg and repeat lipid panel in 4-6 weeks. Advised to take the medication in the evening. Obesity. Encouraged to lose weight. Dietary modifications and lifestyle changes encouraged. Average weight loss should be 4-6lbs monthly. 10/28/2024 Cannabis use, unspecified, uncomplicated (ICD-10 - F12.90) Krysta is 59 years old pleasant lady with generalized anxiety disorder, mixed hyperlipidemia, carpal tunnel syndrome, hypertension, cannabis use and history of opioid use in the past currently on Suboxone is here for follow-up. Plan is as follows Opioid dependence. -Urine toxicology reviewed with appropriately positive for Buprenorphine. -Liver function tests within normal limits -Wrappers counted, four Suboxone films left -No signs of divergent or apparent behavior -Prescription monitoring program reviewed -He has controlled substance contract -Continue current regimen -Counseling done Mixed hyperlipidemia. - Started on atorvastatin 20 mg and repeat lipid panel in 4-6 weeks. Advised to take the medication in the evening. Obesity. Encouraged to lose weight. Dietary modifications and lifestyle changes encouraged. Average weight loss should be 4-6lbs monthly. 04/19/2025 Cannabis use, unspecified, uncomplicated (ICD-10 - F12.90) Krysta is 59 years old pleasant lady with generalized anxiety disorder, mixed hyperlipidemia, carpal tunnel syndrome, hypertension, cannabis use and history of opioid use in the past currently on Suboxone is here for follow-up. Plan is as follows Opioid dependence. -Urine toxicology reviewed with appropriately positive for Buprenorphine. -Liver function tests within normal limits -Wrappers counted, four Suboxone films left -No signs of divergent or apparent behavior -Prescription monitoring program reviewed -She has controlled substance contract -Continue current regimen -Counseling done Mixed hyperlipidemia. - Continue on atorvastatin 20 mg. Pending lipid panel lower extremity neuropathy: Stable. Continue on the same regimen. HTN: Blood pressure is well controlled. Continue on the same regimen. ARMIN: - Stable at this point. She will schedule an appointment with her mental health therapist. Advised on lifestyle modification like exercising as it does help with depression/anxiet y Insomnia. Stable continue on trazodone.Add magnesium supplement Marijuana use Abstinence is recommended. Complications have been discussed. Atypical chest pain. EKG is done in the office today with HR of 63bpm, No ST elevation/depress ion. No BBB. normal intervals. Most likely indigestion could also be a factor of increased stress and anxiety. Discussed a trial of anti-acid. She will also start seeing her therapist and she was referred before to psychiatrist. General concerns have been discussed I have rendered the services for this patient under direct supervision of Dr. Taylor, who did not see the patient but was available upon request 01/20/2025 Fatigue, unspecified type (ICD-10 - R53.83) Krysta is 59 years old pleasant lady with generalized anxiety disorder, mixed hyperlipidemia, carpal tunnel syndrome, hypertension, cannabis use and history of opioid use in the past currently on Suboxone is here for follow-up. Plan is as follows Opioid dependence. -Urine toxicology reviewed with appropriately positive for Buprenorphine. -Liver function tests within normal limits -Wrappers counted, four Suboxone films left -No signs of divergent or apparent behavior -Prescription monitoring program reviewed -She has controlled substance contract -Continue current regimen -Counseling done Mixed hyperlipidemia. - Continue on atorvastatin 20 mg and repeat lipid panel in 4-6 weeks lower extremity neuropathy,, chronic lower extremity pain she cannot sleep at home mostly restless leg, she is on gabapentin 200 mg patient reports she cannot sleep and has a lot of lower extremity pain she also went to a sack keeper who prescribed a brace but patient insurance would not cover for it. She is getting a new insurance in February and most likely it would be covered. For now we will increase gabapentin to 300 mg at night from 200 mg at night. ARMIN: - Stable at this point. Marijuana use Abstinence is recommended. Complications have been discussed. 12/23/2024 Fatigue, unspecified type (ICD-10 - R53.83) Krysta is 59 years old pleasant lady with generalized anxiety disorder, mixed hyperlipidemia, carpal tunnel syndrome, hypertension, cannabis use and history of opioid use in the past currently on Suboxone is here for follow-up. Plan is as follows Opioid dependence. -Urine toxicology reviewed with appropriately positive for Buprenorphine. -Liver function tests within normal limits -Wrappers counted, four Suboxone films left -No signs of divergent or apparent behavior -Prescription monitoring program reviewed -He has controlled substance contract -Continue current regimen -Counseling done Mixed hyperlipidemia. - Continue on atorvastatin 20 mg and repeat lipid panel in 4-6 weeks. Advised to take the medication in the evening. ARMIN: - Stable at this point. She recently lost her mother and best friend. She is currently in therapy. I have discussed adding Seroquel to the regimen given ongoing depression, however she is hesitant and would like to do more research and will keep us updated. Cannabis use - Abstinence is recommended. Complications have been discussed. Fatigue - Likely secondary to depression and grieving. However I will still rule out secondary reversible causes I have rendered the services for this patient under direct supervision of Dr. Taylor, who did not see the patient but was available upon request 08/12/2024 Other chest pain (ICD-10 - R07.89) Mrs. Hinkle is 58 years old lady with a history of generalized anxiety disorder here for follow up s/p ER discharge. Plan is as follows: Hypertension. Her blood pressure is running high in the office today. Cut back on sodium intake. Advised appropriate hydration, cardio exercises and weight loss. Start amlodipine 2.5 MG once a day. Generalized anxiety disorder. Mood is stable on Sertraline once a day. Class 1 obesity. Advised dietary restrictions and regimental exercise. Goal is to lose 5-6 lbs a month. Screening blood work before next appointment. General health concerns discussed with patient. Scribe services used to formulate this note under HIPAA compliance and under [place] law mandated for scribe services. Patient aware of service. Verbal consent and written consent taken from the patient. Patient understands and verbalizes understanding of the scribes services and all questions answered regarding scribes services. Patient agrees to use of scribes services. 11/25/2024 Other obesity due to excess calories (ICD-10 - E66.09) Krysta is 59 years old pleasant lady with generalized anxiety disorder, mixed hyperlipidemia, carpal tunnel syndrome, hypertension, cannabis use and history of opioid use in the past currently on Suboxone is here for follow-up. Plan is as follows Opioid dependence. -Urine toxicology reviewed with appropriately positive for Buprenorphine. -Liver function tests within normal limits -Wrappers counted, four Suboxone films left -No signs of divergent or apparent behavior -Prescription monitoring program reviewed -He has controlled substance contract -Continue current regimen -Counseling done Mixed hyperlipidemia. - Continue on atorvastatin 20 mg and repeat lipid panel in 4-6 weeks. Advised to take the medication in the evening. ARMIN: - Stable at this point. She recently lost her mother and best friend. She is currently in therapy. Obesity. - She is losing steady weight. She will scheduling an appt for weight consultation. Encouraged to lose weight. Dietary modifications and lifestyle changes encouraged. Average weight loss should be 4-6lbs monthly. 09/30/2024 Cannabis use, unspecified, uncomplicated (ICD-10 - F12.90) Krysta is 58 years old pleasant lady with generalized anxiety disorder, mixed hyperlipidemia, carpal tunnel syndrome, hypertension, cannabis use and history of opioid use in the past currently on Suboxone is here for follow-up. Plan is as follows Mixed hyperlipidemia. Started on atorvastatin 20 mg and repeat lipid panel in 4-6 weeks. Advised to take the medication in the evening. CKD stage II. Discussed with the patient to stay appropriately hydrated and take Tylenol for pain. This can be multifactorial but no intervention needed. Generalized anxiety disorder. She is stable and she follows up with Miss Parham for counseling. Impaired fasting glucose. Dietary restrictions and check A1c in future. Obesity. Encouraged to lose weight. Dietary modifications and lifestyle changes encouraged. Average weight loss should be 6 pounds a month. Opioid dependence. -Urine toxicology reviewed with appropriately positive and negative. -Liver function tests within normal limits -Wrappers counted, four Suboxone films left -No signs of divergent or apparent behavior -Prescription monitoring program reviewed -He has controlled substance contract -Continue current regimen -Counseling done 08/15/2024 Other obesity due to excess calories (ICD-10 - E66.09) Mrs. Hinkle is 58 years old lady with a history of generalized anxiety disorder here for follow up s/p ER discharge. Plan is as follows: Hypertension. - Her blood pressure is well controlled. Continue on the same regimen. Cut back on sodium intake. Advised appropriate hydration, cardio exercises and weight loss. - EKG was done 2 weeks ago. She has echo appointment coming up in October. Generalized anxiety disorder. Insomnia: - PHQ 9 of 14. She is on sertraline 100 mg twice a day. She had side effects from adjunct medications. Given that she has insomnia and depression, I started patient on low dose trazodone. She is also going to be on gabapentin for restless leg syndrome which will also help with sleep and depression. She has an established therapy. Referred patient to psychiatry. Will follow in 4 weeks Class 1 obesity. -Advised dietary restrictions and regimental exercise. Goal is to lose 5-6 lbs a month. Opioid dependence: - Stable on Suboxone. Utox is done in the office and it is positive for Suboxone. Continue on the same regimen. - Positive for fentanyl we will send it for confirmation. Cannabis use - Advised on smoking cessation given its side effects. Patient states that she is working on cutting down on smoking marijuana. Restless leg syndrome: - Started patient on gabapentin. Side effects have been discussed. Patient agrees. Fatigue Snoring - I will rule out underlying causes including thyroid, vitamin D, CBC, folate and B12. I also referred patient to sleep medicine. Carpal tunnel syndrome bilateral - Advised on use of splint, NSAIDs. Referred patient to nerve conduction study for further management. Screening for breast cancer - Ordered mammogram Screening for colon cancer - She has a colonoscopy coming up. Referred patient to EN[facility]ONMENT[facility] SCIENCE [facility] for Pap smear, pelvic examination, breast exam. Otherwise, she is up-to-date on vaccinations. Screening blood work before next appointment. General health concerns discussed with patient. I have rendered the services for this patient under direct supervision of Dr. Taylor, who did not see the patient but was available upon request I was present and available in the office during the visit 08/12/2024 Opioid dependence, uncomplicated (ICD-10 - F11.20) Mrs. Hinkle is 58 years old lady with a history of generalized anxiety disorder here for follow up s/p ER discharge. Plan is as follows: Hypertension. Her blood pressure is running high in the office today. Cut back on sodium intake. Advised appropriate hydration, cardio exercises and weight loss. Start amlodipine 2.5 MG once a day. Generalized anxiety disorder. Mood is stable on Sertraline once a day. Class 1 obesity. Advised dietary restrictions and regimental exercise. Goal is to lose 5-6 lbs a month. Screening blood work before next appointment. General health concerns discussed with patient. Scribe services used to formulate this note under HIPAA compliance and under [place] law mandated for scribe services. Patient aware of service. Verbal consent and written consent taken from the patient. Patient understands and verbalizes understanding of the scribes services and all questions answered regarding scribes services. Patient agrees to use of scribes services. 08/15/2024 Dietary counseling and surveillance (ICD-10 - Z71.3) Mrs. Hinkle is 58 years old lady with a history of generalized anxiety disorder here for follow up s/p ER discharge. Plan is as follows: Hypertension. - Her blood pressure is well controlled. Continue on the same regimen. Cut back on sodium intake. Advised appropriate hydration, cardio exercises and weight loss. - EKG was done 2 weeks ago. She has echo appointment coming up in October. Generalized anxiety disorder. Insomnia: - PHQ 9 of 14. She is on sertraline 100 mg twice a day. She had side effects from adjunct medications. Given that she has insomnia and depression, I started patient on low dose trazodone. She is also going to be on gabapentin for restless leg syndrome which will also help with sleep and depression. She has an established therapy. Referred patient to psychiatry. Will follow in 4 weeks Class 1 obesity. -Advised dietary restrictions and regimental exercise. Goal is to lose 5-6 lbs a month. Opioid dependence: - Stable on Suboxone. Utox is done in the office and it is positive for Suboxone. Continue on the same regimen. - Positive for fentanyl we will send it for confirmation. Cannabis use - Advised on smoking cessation given its side effects. Patient states that she is working on cutting down on smoking marijuana. Restless leg syndrome: - Started patient on gabapentin. Side effects have been discussed. Patient agrees. Fatigue Snoring - I will rule out underlying causes including thyroid, vitamin D, CBC, folate and B12. I also referred patient to sleep medicine. Carpal tunnel syndrome bilateral - Advised on use of splint, NSAIDs. Referred patient to nerve conduction study for further management. Screening for breast cancer - Ordered mammogram Screening for colon cancer - She has a colonoscopy coming up. Referred patient to ENVIRON[facility] SCIENCE [facility] for Pap smear, pelvic examination, breast exam. Otherwise, she is up-to-date on vaccinations. Screening blood work before next appointment. General health concerns discussed with patient. I have rendered the services for this patient under direct supervision of Dr. Taylor, who did not see the patient but was available upon request I was present and available in the office during the visit 09/30/2024 Impaired fasting blood sugar (ICD-10 - R73.01) Krysta is 58 years old pleasant lady with generalized anxiety disorder, mixed hyperlipidemia, carpal tunnel syndrome, hypertension, cannabis use and history of opioid use in the past currently on Suboxone is here for follow-up. Plan is as follows Mixed hyperlipidemia. Started on atorvastatin 20 mg and repeat lipid panel in 4-6 weeks. Advised to take the medication in the evening. CKD stage II. Discussed with the patient to stay appropriately hydrated and take Tylenol for pain. This can be multifactorial but no intervention needed. Generalized anxiety disorder. She is stable and she follows up with Miss Parham for counseling. Impaired fasting glucose. Dietary restrictions and check A1c in future. Obesity. Encouraged to lose weight. Dietary modifications and lifestyle changes encouraged. Average weight loss should be 6 pounds a month. Opioid dependence. -Urine toxicology reviewed with appropriately positive and negative. -Liver function tests within normal limits -Wrappers counted, four Suboxone films left -No signs of divergent or apparent behavior -Prescription monitoring program reviewed -He has controlled substance contract -Continue current regimen -Counseling done 11/25/2024 Dietary counseling and surveillance (ICD-10 - Z71.3) Krysta is 59 years old pleasant lady with generalized anxiety disorder, mixed hyperlipidemia, carpal tunnel syndrome, hypertension, cannabis use and history of opioid use in the past currently on Suboxone is here for follow-up. Plan is as follows Opioid dependence. -Urine toxicology reviewed with appropriately positive for Buprenorphine. -Liver function tests within normal limits -Wrappers counted, four Suboxone films left -No signs of divergent or apparent behavior -Prescription monitoring program reviewed -He has controlled substance contract -Continue current regimen -Counseling done Mixed hyperlipidemia. - Continue on atorvastatin 20 mg and repeat lipid panel in 4-6 weeks. Advised to take the medication in the evening. ARMIN: - Stable at this point. She recently lost her mother and best friend. She is currently in therapy. Obesity. - She is losing steady weight. She will scheduling an appt for weight consultation. Encouraged to lose weight. Dietary modifications and lifestyle changes encouraged. Average weight loss should be 4-6lbs monthly. 04/19/2025 Atypical chest pain (ICD-10 - R07.89) Krysta is 59 years old pleasant lady with generalized anxiety disorder, mixed hyperlipidemia, carpal tunnel syndrome, hypertension, cannabis use and history of opioid use in the past currently on Suboxone is here for follow-up. Plan is as follows Opioid dependence. -Urine toxicology reviewed with appropriately positive for Buprenorphine. -Liver function tests within normal limits -Wrappers counted, four Suboxone films left -No signs of divergent or apparent behavior -Prescription monitoring program reviewed -She has controlled substance contract -Continue current regimen -Counseling done Mixed hyperlipidemia. - Continue on atorvastatin 20 mg. Pending lipid panel lower extremity neuropathy: Stable. Continue on the same regimen. HTN: Blood pressure is well controlled. Continue on the same regimen. ARMIN: - Stable at this point. She will schedule an appointment with her mental health therapist. Advised on lifestyle modification like exercising as it does help with depression/anxiet y Insomnia. Stable continue on trazodone.Add magnesium supplement Marijuana use Abstinence is recommended. Complications have been discussed. Atypical chest pain. EKG is done in the office today with HR of 63bpm, No ST elevation/depress ion. No BBB. normal intervals. Most likely indigestion could also be a factor of increased stress and anxiety. Discussed a trial of anti-acid. She will also start seeing her therapist and she was referred before to psychiatrist. General concerns have been discussed I have rendered the services for this patient under direct supervision of Dr. Taylor, who did not see the patient but was available upon request 10/28/2024 Dietary counseling and surveillance (ICD-10 - Z71.3) Krysta is 59 years old pleasant lady with generalized anxiety disorder, mixed hyperlipidemia, carpal tunnel syndrome, hypertension, cannabis use and history of opioid use in the past currently on Suboxone is here for follow-up. Plan is as follows Opioid dependence. -Urine toxicology reviewed with appropriately positive for Buprenorphine. -Liver function tests within normal limits -Wrappers counted, four Suboxone films left -No signs of divergent or apparent behavior -Prescription monitoring program reviewed -He has controlled substance contract -Continue current regimen -Counseling done Mixed hyperlipidemia. - Started on atorvastatin 20 mg and repeat lipid panel in 4-6 weeks. Advised to take the medication in the evening. Obesity. Encouraged to lose weight. Dietary modifications and lifestyle changes encouraged. Average weight loss should be 4-6lbs monthly. 09/30/2024 Dietary counseling and surveillance (ICD-10 - Z71.3) Krysta is 58 years old pleasant lady with generalized anxiety disorder, mixed hyperlipidemia, carpal tunnel syndrome, hypertension, cannabis use and history of opioid use in the past currently on Suboxone is here for follow-up. Plan is as follows Mixed hyperlipidemia. Started on atorvastatin 20 mg and repeat lipid panel in 4-6 weeks. Advised to take the medication in the evening. CKD stage II. Discussed with the patient to stay appropriately hydrated and take Tylenol for pain. This can be multifactorial but no intervention needed. Generalized anxiety disorder. She is stable and she follows up with Miss Parham for counseling. Impaired fasting glucose. Dietary restrictions and check A1c in future. Obesity. Encouraged to lose weight. Dietary modifications and lifestyle changes encouraged. Average weight loss should be 6 pounds a month. Opioid dependence. -Urine toxicology reviewed with appropriately positive and negative. -Liver function tests within normal limits -Wrappers counted, four Suboxone films left -No signs of divergent or apparent behavior -Prescription monitoring program reviewed -He has controlled substance contract -Continue current regimen -Counseling done 08/12/2024 Drug abuse counseling and surveillance of drug abuser (ICD-10 - Z71.51) Mrs. Hinkle is 58 years old lady with a history of generalized anxiety disorder here for follow up s/p ER discharge. Plan is as follows: Hypertension. Her blood pressure is running high in the office today. Cut back on sodium intake. Advised appropriate hydration, cardio exercises and weight loss. Start amlodipine 2.5 MG once a day. Generalized anxiety disorder. Mood is stable on Sertraline once a day. Class 1 obesity. Advised dietary restrictions and regimental exercise. Goal is to lose 5-6 lbs a month. Screening blood work before next appointment. General health concerns discussed with patient. Scribe services used to formulate this note under HIPAA compliance and under [place] law mandated for scribe services. Patient aware of service. Verbal consent and written consent taken from the patient. Patient understands and verbalizes understanding of the scribes services and all questions answered regarding scribes services. Patient agrees to use of scribes services. 08/15/2024 Opioid dependence, uncomplicated (ICD-10 - F11.20) Mrs. Hinkle is 58 years old lady with a history of generalized anxiety disorder here for follow up s/p ER discharge. Plan is as follows: Hypertension. - Her blood pressure is well controlled. Continue on the same regimen. Cut back on sodium intake. Advised appropriate hydration, cardio exercises and weight loss. - EKG was done 2 weeks ago. She has echo appointment coming up in October. Generalized anxiety disorder. Insomnia: - PHQ 9 of 14. She is on sertraline 100 mg twice a day. She had side effects from adjunct medications. Given that she has insomnia and depression, I started patient on low dose trazodone. She is also going to be on gabapentin for restless leg syndrome which will also help with sleep and depression. She has an established therapy. Referred patient to psychiatry. Will follow in 4 weeks Class 1 obesity. -Advised dietary restrictions and regimental exercise. Goal is to lose 5-6 lbs a month. Opioid dependence: - Stable on Suboxone. Utox is done in the office and it is positive for Suboxone. Continue on the same regimen. - Positive for fentanyl we will send it for confirmation. Cannabis use - Advised on smoking cessation given its side effects. Patient states that she is working on cutting down on smoking marijuana. Restless leg syndrome: - Started patient on gabapentin. Side effects have been discussed. Patient agrees. Fatigue Snoring - I will rule out underlying causes including thyroid, vitamin D, CBC, folate and B12. I also referred patient to sleep medicine. Carpal tunnel syndrome bilateral - Advised on use of splint, NSAIDs. Referred patient to nerve conduction study for further management. Screening for breast cancer - Ordered mammogram Screening for colon cancer - She has a colonoscopy coming up. Referred patient to [facility]ON[facility] SCIENCE PROF[facility] for Pap smear, pelvic examination, breast exam. Otherwise, she is up-to-date on vaccinations. Screening blood work before next appointment. General health concerns discussed with patient. I have rendered the services for this patient under direct supervision of Dr. Taylor, who did not see the patient but was available upon request I was present and available in the office during the visit 08/15/2024 Drug abuse counseling and surveillance of drug abuser (ICD-10 - Z71.51) Mrs. Hinkle is 58 years old lady with a history of generalized anxiety disorder here for follow up s/p ER discharge. Plan is as follows: Hypertension. - Her blood pressure is well controlled. Continue on the same regimen. Cut back on sodium intake. Advised appropriate hydration, cardio exercises and weight loss. - EKG was done 2 weeks ago. She has echo appointment coming up in October. Generalized anxiety disorder. Insomnia: - PHQ 9 of 14. She is on sertraline 100 mg twice a day. She had side effects from adjunct medications. Given that she has insomnia and depression, I started patient on low dose trazodone. She is also going to be on gabapentin for restless leg syndrome which will also help with sleep and depression. She has an established therapy. Referred patient to psychiatry. Will follow in 4 weeks Class 1 obesity. -Advised dietary restrictions and regimental exercise. Goal is to lose 5-6 lbs a month. Opioid dependence: - Stable on Suboxone. Utox is done in the office and it is positive for Suboxone. Continue on the same regimen. - Positive for fentanyl we will send it for confirmation. Cannabis use - Advised on smoking cessation given its side effects. Patient states that she is working on cutting down on smoking marijuana. Restless leg syndrome: - Started patient on gabapentin. Side effects have been discussed. Patient agrees. Fatigue Snoring - I will rule out underlying causes including thyroid, vitamin D, CBC, folate and B12. I also referred patient to sleep medicine. Carpal tunnel syndrome bilateral - Advised on use of splint, NSAIDs. Referred patient to nerve conduction study for further management. Screening for breast cancer - Ordered mammogram Screening for colon cancer - She has a colonoscopy coming up. Referred patient to [facility]ONMENT[facility] SCIENCE [facility] for Pap smear, pelvic examination, breast exam. Otherwise, she is up-to-date on vaccinations. Screening blood work before next appointment. General health concerns discussed with patient. I have rendered the services for this patient under direct supervision of Dr. Taylor, who did not see the patient but was available upon request I was present and available in the office during the visit 09/30/2024 Dermatitis, unspecified (ICD-10 - L30.9) Krysta is 58 years old pleasant lady with generalized anxiety disorder, mixed hyperlipidemia, carpal tunnel syndrome, hypertension, cannabis use and history of opioid use in the past currently on Suboxone is here for follow-up. Plan is as follows Mixed hyperlipidemia. Started on atorvastatin 20 mg and repeat lipid panel in 4-6 weeks. Advised to take the medication in the evening. CKD stage II. Discussed with the patient to stay appropriately hydrated and take Tylenol for pain. This can be multifactorial but no intervention needed. Generalized anxiety disorder. She is stable and she follows up with [facility] for counseling. Impaired fasting glucose. Dietary restrictions and check A1c in future. Obesity. Encouraged to lose weight. Dietary modifications and lifestyle changes encouraged. Average weight loss should be 6 pounds a month. Opioid dependence. -Urine toxicology reviewed with appropriately positive and negative. -Liver function tests within normal limits -Wrappers counted, four Suboxone films left -No signs of divergent or apparent behavior -Prescription monitoring program reviewed -He has controlled substance contract -Continue current regimen -Counseling done 10/28/2024 Impaired fasting blood sugar (ICD-10 - R73.01) Krysta is 59 years old pleasant lady with generalized anxiety disorder, mixed hyperlipidemia, carpal tunnel syndrome, hypertension, cannabis use and history of opioid use in the past currently on Suboxone is here for follow-up. Plan is as follows Opioid dependence. -Urine toxicology reviewed with appropriately positive for Buprenorphine. -Liver function tests within normal limits -Wrappers counted, four Suboxone films left -No signs of divergent or apparent behavior -Prescription monitoring program reviewed -He has controlled substance contract -Continue current regimen -Counseling done Mixed hyperlipidemia. - Started on atorvastatin 20 mg and repeat lipid panel in 4-6 weeks. Advised to take the medication in the evening. Obesity. Encouraged to lose weight. Dietary modifications and lifestyle changes encouraged. Average weight loss should be 4-6lbs monthly. 09/30/2024 Chronic kidney disease, stage 2 (mild) (ICD-10 - N18.2) Krysta is 58 years old pleasant lady with generalized anxiety disorder, mixed hyperlipidemia, carpal tunnel syndrome, hypertension, cannabis use and history of opioid use in the past currently on Suboxone is here for follow-up. Plan is as follows Mixed hyperlipidemia. Started on atorvastatin 20 mg and repeat lipid panel in 4-6 weeks. Advised to take the medication in the evening. CKD stage II. Discussed with the patient to stay appropriately hydrated and take Tylenol for pain. This can be multifactorial but no intervention needed. Generalized anxiety disorder. She is stable and she follows up with Miss Par[facility] for counseling. Impaired fasting glucose. Dietary restrictions and check A1c in future. Obesity. Encouraged to lose weight. Dietary modifications and lifestyle changes encouraged. Average weight loss should be 6 pounds a month. Opioid dependence. -Urine toxicology reviewed with appropriately positive and negative. -Liver function tests within normal limits -Wrappers counted, four Suboxone films left -No signs of divergent or apparent behavior -Prescription monitoring program reviewed -He has controlled substance contract -Continue current regimen -Counseling done 08/15/2024 Cannabis use, unspecified, uncomplicated (ICD-10 - F12.90) Mrs. Hinkle is 58 years old lady with a history of generalized anxiety disorder here for follow up s/p ER discharge. Plan is as follows: Hypertension. - Her blood pressure is well controlled. Continue on the same regimen. Cut back on sodium intake. Advised appropriate hydration, cardio exercises and weight loss. - EKG was done 2 weeks ago. She has echo appointment coming up in October. Generalized anxiety disorder. Insomnia: - PHQ 9 of 14. She is on sertraline 100 mg twice a day. She had side effects from adjunct medications. Given that she has insomnia and depression, I started patient on low dose trazodone. She is also going to be on gabapentin for restless leg syndrome which will also help with sleep and depression. She has an established therapy. Referred patient to psychiatry. Will follow in 4 weeks Class 1 obesity. -Advised dietary restrictions and regimental exercise. Goal is to lose 5-6 lbs a month. Opioid dependence: - Stable on Suboxone. Utox is done in the office and it is positive for Suboxone. Continue on the same regimen. - Positive for fentanyl we will send it for confirmation. Cannabis use - Advised on smoking cessation given its side effects. Patient states that she is working on cutting down on smoking marijuana. Restless leg syndrome: - Started patient on gabapentin. Side effects have been discussed. Patient agrees. Fatigue Snoring - I will rule out underlying causes including thyroid, vitamin D, CBC, folate and B12. I also referred patient to sleep medicine. Carpal tunnel syndrome bilateral - Advised on use of splint, NSAIDs. Referred patient to nerve conduction study for further management. Screening for breast cancer - Ordered mammogram Screening for colon cancer - She has a colonoscopy coming up. Referred patient to ENVIRONMENTAL SCIENCE PROF[facility]OR for Pap smear, pelvic examination, breast exam. Otherwise, she is up-to-date on vaccinations. Screening blood work before next appointment. General health concerns discussed with patient. I have rendered the services for this patient under direct supervision of Dr. Taylor, who did not see the patient but was available upon request I was present and available in the office during the visit 08/15/2024 Restless legs syndrome (ICD-10 - G25.81) Mrs. Hinkle is 58 years old lady with a history of generalized anxiety disorder here for follow up s/p ER discharge. Plan is as follows: Hypertension. - Her blood pressure is well controlled. Continue on the same regimen. Cut back on sodium intake. Advised appropriate hydration, cardio exercises and weight loss. - EKG was done 2 weeks ago. She has echo appointment coming up in October. Generalized anxiety disorder. Insomnia: - PHQ 9 of 14. She is on sertraline 100 mg twice a day. She had side effects from adjunct medications. Given that she has insomnia and depression, I started patient on low dose trazodone. She is also going to be on gabapentin for restless leg syndrome which will also help with sleep and depression. She has an established therapy. Referred patient to psychiatry. Will follow in 4 weeks Class 1 obesity. -Advised dietary restrictions and regimental exercise. Goal is to lose 5-6 lbs a month. Opioid dependence: - Stable on Suboxone. Utox is done in the office and it is positive for Suboxone. Continue on the same regimen. - Positive for fentanyl we will send it for confirmation. Cannabis use - Advised on smoking cessation given its side effects. Patient states that she is working on cutting down on smoking marijuana. Restless leg syndrome: - Started patient on gabapentin. Side effects have been discussed. Patient agrees. Fatigue Snoring - I will rule out underlying causes including thyroid, vitamin D, CBC, folate and B12. I also referred patient to sleep medicine. Carpal tunnel syndrome bilateral - Advised on use of splint, NSAIDs. Referred patient to nerve conduction study for further management. Screening for breast cancer - Ordered mammogram Screening for colon cancer - She has a colonoscopy coming up. Referred patient to [facility] for Pap smear, pelvic examination, breast exam. Otherwise, she is up-to-date on vaccinations. Screening blood work before next appointment. General health concerns discussed with patient. I have rendered the services for this patient under direct supervision of Dr. Taylor, who did not see the patient but was available upon request I was present and available in the office during the visit 08/15/2024 Fatigue, unspecified type (ICD-10 - R53.83) Mrs. Hinkle is 58 years old lady with a history of generalized anxiety disorder here for follow up s/p ER discharge. Plan is as follows: Hypertension. - Her blood pressure is well controlled. Continue on the same regimen. Cut back on sodium intake. Advised appropriate hydration, cardio exercises and weight loss. - EKG was done 2 weeks ago. She has echo appointment coming up in October. Generalized anxiety disorder. Insomnia: - PHQ 9 of 14. She is on sertraline 100 mg twice a day. She had side effects from adjunct medications. Given that she has insomnia and depression, I started patient on low dose trazodone. She is also going to be on gabapentin for restless leg syndrome which will also help with sleep and depression. She has an established therapy. Referred patient to psychiatry. Will follow in 4 weeks Class 1 obesity. -Advised dietary restrictions and regimental exercise. Goal is to lose 5-6 lbs a month. Opioid dependence: - Stable on Suboxone. Utox is done in the office and it is positive for Suboxone. Continue on the same regimen. - Positive for fentanyl we will send it for confirmation. Cannabis use - Advised on smoking cessation given its side effects. Patient states that she is working on cutting down on smoking marijuana. Restless leg syndrome: - Started patient on gabapentin. Side effects have been discussed. Patient agrees. Fatigue Snoring - I will rule out underlying causes including thyroid, vitamin D, CBC, folate and B12. I also referred patient to sleep medicine. Carpal tunnel syndrome bilateral - Advised on use of splint, NSAIDs. Referred patient to nerve conduction study for further management. Screening for breast cancer - Ordered mammogram Screening for colon cancer - She has a colonoscopy coming up. Referred patient to [facility] for Pap smear, pelvic examination, breast exam. Otherwise, she is up-to-date on vaccinations. Screening blood work before next appointment. General health concerns discussed with patient. I have rendered the services for this patient under direct supervision of Dr. Taylor, who did not see the patient but was available upon request I was present and available in the office during the visit 08/15/2024 Bilateral carpal tunnel syndrome (ICD-10 - G56.03) Mrs. Hinkle is 58 years old lady with a history of generalized anxiety disorder here for follow up s/p ER discharge. Plan is as follows: Hypertension. - Her blood pressure is well controlled. Continue on the same regimen. Cut back on sodium intake. Advised appropriate hydration, cardio exercises and weight loss. - EKG was done 2 weeks ago. She has echo appointment coming up in October. Generalized anxiety disorder. Insomnia: - PHQ 9 of 14. She is on sertraline 100 mg twice a day. She had side effects from adjunct medications. Given that she has insomnia and depression, I started patient on low dose trazodone. She is also going to be on gabapentin for restless leg syndrome which will also help with sleep and depression. She has an established therapy. Referred patient to psychiatry. Will follow in 4 weeks Class 1 obesity. -Advised dietary restrictions and regimental exercise. Goal is to lose 5-6 lbs a month. Opioid dependence: - Stable on Suboxone. Utox is done in the office and it is positive for Suboxone. Continue on the same regimen. - Positive for fentanyl we will send it for confirmation. Cannabis use - Advised on smoking cessation given its side effects. Patient states that she is working on cutting down on smoking marijuana. Restless leg syndrome: - Started patient on gabapentin. Side effects have been discussed. Patient agrees. Fatigue Snoring - I will rule out underlying causes including thyroid, vitamin D, CBC, folate and B12. I also referred patient to sleep medicine. Carpal tunnel syndrome bilateral - Advised on use of splint, NSAIDs. Referred patient to nerve conduction study for further management. Screening for breast cancer - Ordered mammogram Screening for colon cancer - She has a colonoscopy coming up. Referred patient to [facility] for Pap smear, pelvic examination, breast exam. Otherwise, she is up-to-date on vaccinations. Screening blood work before next appointment. General health concerns discussed with patient. I have rendered the services for this patient under direct supervision of Dr. Taylor, who did not see the patient but was available upon request I was present and available in the office during the visit 08/15/2024 Encounter for screening mammogram for malignant neoplasm of breast (ICD-10 - Z12.31) Mrs. Hinkle is 58 years old lady with a history of generalized anxiety disorder here for follow up s/p ER discharge. Plan is as follows: Hypertension. - Her blood pressure is well controlled. Continue on the same regimen. Cut back on sodium intake. Advised appropriate hydration, cardio exercises and weight loss. - EKG was done 2 weeks ago. She has echo appointment coming up in October. Generalized anxiety disorder. Insomnia: - PHQ 9 of 14. She is on sertraline 100 mg twice a day. She had side effects from adjunct medications. Given that she has insomnia and depression, I started patient on low dose trazodone. She is also going to be on gabapentin for restless leg syndrome which will also help with sleep and depression. She has an established therapy. Referred patient to psychiatry. Will follow in 4 weeks Class 1 obesity. -Advised dietary restrictions and regimental exercise. Goal is to lose 5-6 lbs a month. Opioid dependence: - Stable on Suboxone. Utox is done in the office and it is positive for Suboxone. Continue on the same regimen. - Positive for fentanyl we will send it for confirmation. Cannabis use - Advised on smoking cessation given its side effects. Patient states that she is working on cutting down on smoking marijuana. Restless leg syndrome: - Started patient on gabapentin. Side effects have been discussed. Patient agrees. Fatigue Snoring - I will rule out underlying causes including thyroid, vitamin D, CBC, folate and B12. I also referred patient to sleep medicine. Carpal tunnel syndrome bilateral - Advised on use of splint, NSAIDs. Referred patient to nerve conduction study for further management. Screening for breast cancer - Ordered mammogram Screening for colon cancer - She has a colonoscopy coming up. Referred patient to [facility] for Pap smear, pelvic examination, breast exam. Otherwise, she is up-to-date on vaccinations. Screening blood work before next appointment. General health concerns discussed with patient. I have rendered the services for this patient under direct supervision of Dr. Taylor, who did not see the patient but was available upon request I was present and available in the office during the visit Plan Of Treatment Pending Test Test Name Order Date Echocardiogram 08/12/2024 X ray : CHEST PA LATERAL 10/12/2023 ALT (SGPT) 06/23/2023 AST (SGOT) 06/23/2023 Mammo: Images Screening Mammogram Bilate ral 08/15/2024 Cologuard 05/27/2024 Vitamin B12 and Folate-[id number] 12/23/2024 Vitamin B12 and Folate-954869 08/15/2024 Iron and TIBC-284841 08/15/2024 Iron and TIBC-826585 12/23/2024 Hemoglobin D3d-069176 09/16/2024 Ferritin-967537 12/23/2024 CBC with Diff, Platelet, NLR-[id number] 11/27 Vitamin D, 79-Ulfllhx-299101 08/15/2024 Vitamin D, 75-Pkddcry-320348 12/23/2024 CBC/Differential (No Platelet)-879029 Albumin/Creatinine Ratio,Urine-869177 TSH+Free T4-948927 12/23/2024 Lipid Panel-101703 09/16/2024 Lipid Panel-760275 11/25/2024 Ferritin, (Serial)-940845 08/15/2024 Methylmalonic Acid, Serum-189144 024 Methylmalonic Acid, Serum-545914 025 Homocyst(e)ine-568485 12/23/2024 Homocyst(e)ine-229061 08/15/2024 Hemoglobin K5t-224823 10/28/2024 Lipid Panel-955721 10/28/2024 Next Appt Details Provider Name:Yecenia bhatia, 05/19/2025 10:45:00 AM, [address] [place] [address], [phone], Provider Name:CHARANJIT TAYLOR , 05/26/2025 11:30:00 AM, [address] [place] [address], [phone], Insurance Providers Payer Name Payer Address Payer Phone Subscriber Number Group Number Insured Name Patient Relationship to Insured Coverage Start Date Coverage End Date [employer] [facility] [address] [address] [place] [phone] [id number] Krysta Hinkle Self - patient is the insured Medical (General) History Medical History History ICD Code Anxiety disorder depression OUD sober since December 25 2014 Personal history of COVID-19
[2025-04-24 12:13] LABS: Iron 60 mcg/dL (30-160); Percent Iron Saturation 21 % (15-50); Total Iron Binding Capacity 287 mcg/dL (228-428); Unsaturated Iron Binding 227 ug/dL
[2025-04-24 12:31] LABS: Ferritin 107 ng/mL (10-250); Free T4 (Free Thyroxine) 0.85 ng/dL (0.71-1.85); Thyroid Stimulating Hormone 1.76 uIU/mL (0.32-4.0); Vitamin D 25-OH Total 12.2 ng/mL (>30)
[2025-04-24 12:41] LABS: Folate 5.9 ng/mL (> or = 4.0); Vitamin B12 190 pg/mL (200-900)
[2025-04-25 18:43] LABS: Homocysteine 19.1 umol/L (< or = 13.4)
[2025-05-01 00:59] LABS: Methylmalonic Acid 287 nmol/L (55-335)
== END 2025-04-24 11:03 | disposition home or self-care (01) ==
LOC: HO.LAB 11:02
PROVIDERS: PCP Hospitalist
DX: R53.83 Other fatigue (principal)
CPT/HCPCS: 36415; 82306; 82607; 82728; 82746; 83090; 83540; 83921; 84439; 84443; 85025